=== PATIENT | female | born 1970 | race Caucasian/White ===

== ENCOUNTER 2017-06-09 09:43 | Inpatient (IN) | payer OTHER ==
[~2017-06-09] VITALS: Ht 165.1 cm; Wt 66.2 kg
[2017-06-09 14:23] VITALS: BP 107/71
[2017-06-09] MEDS ORDERED: Hydromorphone 0.5mg/0.5ml inj IVP PRN (14:45)
--- NOTE | 2017-06-09 15:05 | History & Physical ---
History and Physical History & Physicial job # [id number] Alexsander Dubon MD Jun 09, 2017 15:05
[2017-06-09] MEDS: HYDROmorphone 1mg/ml Carpuject IVP PRN ×2 (16:16→20:17)
[2017-06-09] MEDS: D5 1/2NS w/KCl 20mEq 1,000 ML IV SCH (17:13)
[2017-06-09] MEDS ORDERED: LORazepam Inj 2mg/ml 1ml IV ONE (18:45)
[2017-06-09 20:00] VITALS: BP 115/59
[2017-06-09] MEDS: Tamsulosin 0.4mg cap ORAL SCH (20:17)
--- NOTE | 2017-06-09 22:15 | Consultation ---
DATE OF CONSULTATION: 06/09/2017 CONSULTING PHYSICIAN: Jeet Chavez M.D. REFERRING PHYSICIAN: Alexsander Dubon M.D. REASON FOR CONSULTATION: For evaluation of renal colic. HISTORY OF PRESENT ILLNESS: This is a 46-year-old female. She was seen at a [place] [facility] for right flank pain. She was transferred to [place] for basically insurance reasons. She was noted to have renal colic, secondary to obstructive ureteral stone. Urology evaluation requested. PAST MEDICAL HISTORY: Chart was reviewed. She has a history of a fibromyalgia. MEDICATIONS: was reviewed. She is currently on Flomax, pain medication, and Zofran. ALLERGIES: Aspirin. PHYSICAL EXAMINATION: VITAL SIGNS: Stable. Temperature is 97.9. LABORATORY AND DIAGNOSTIC DATA: Laboratory studies from [place] showed creatinine of 0.79. UA showed 11 to 25 RBCs. Diagnostic imaging studies, She had a CT scan at [place], the report showed a 4 mm stone of the right proximal ureter with mild right hydronephrosis. IMPRESSION: 1. Renal colic, secondary to a 4 mm right ureteral calculus. 2. Hydronephrosis, secondary to above. 3. Hematuria, secondary to above. PLAN AND DISCUSSION: The patient will be admitted for pain control. I agree with Flomax as ordered. She will be given a trial of passage. Her urine will be strained and if she is not able to pass the urine, at some point she may need to have endoscopic extraction of the stone. Thank you, Dr. Dubon, for this consultation. Jeet Chavez M.D. DR: RASHI JOB#: [id number] CC:
[2017-06-10] VITALS: BP 117/60
--- NOTE | 2017-06-10 | History and Physical Report ---
DATE OF ADMISSION: 06/09/2017 CHIEF COMPLAINT: Right lower quadrant pain. HISTORY OF PRESENT ILLNESS: This is a 46-year-old very delightful female with past medical history significant for fibromyalgia, history of dyslipidemia, borderline, history of asthma as well as osteoarthritis of the spine with lower back pain who was presented to the hospital initially to [facility] complaining about the lower back pain as well as right flank pain. The patient stated that the pain became progressively worsening. The pain initially started about two nights ago, improved. She felt that it is probably her back pain and she fall asleep and then next day during the day, the pain become progressively worsening to the point that she was not able to rest and subsequently decided come to the hospital. Shortly after initial evaluation at the [facility], the patient was confirmed to have a kidney stone and subsequently, the patient was transferred to [facility] for further evaluation and possible urology consultation. CT KUB confirmed that the patient has a 4 millimeter right proximal ureteral obstructing calculus with mild right hydronephrosis. Normal appendix. This is a preliminary result. PAST MEDICAL HISTORY: As above, history of fibromyalgia, asthma, borderline diabetes, history of lower back pain with arthritis of the spine. PAST SURGICAL HISTORY: Significant for LEEP in 1999. MEDICATIONS: Medications at home is none. ALLERGIES: Aspirin. SOCIAL HISTORY: The patient denies any smoking, alcohol, or drugs. She is a former smoker, quit about two years ago. FAMILY HISTORY: Noncontributory except her kidney stone runs in the paternal side. Her father has a history of heart disease with PTCA with stent, congestive heart failure, brain aneurysm and diabetes. Mother had a history of left bundle-branch block. REVIEW OF SYSTEMS: Mostly as above. Denies any dysuria, frequency, hematuria, or hematochezia. Denies any hemoptysis or hematochezia. Denies any bright-red blood per rectum. Denies any loss of conscious. Complains of left flank pain. Nausea. No vomiting. Denies any double vision. PHYSICAL EXAMINATION: GENERAL: The patient awake, responsive, no acute distress. VITAL SIGNS: On admission, blood pressure 119/76, pulse of 92, respiration 18, and temperature 98.4 degrees. HEENT: Pupils are reactive to light. Extraocular movements are intact. NECK: Supple. No JVD. LUNGS: Good air entry. No wheezing or rales. HEART: S1 and S2. Regular rhythm. No murmur or gallops. ABDOMEN: Soft, nondistended, and tender on the right lower quadrant as well as right flank pain. No rebound tenderness. No fluid shift. EXTREMITIES: No cyanosis, clubbing, or edema. NEUROLOGIC: Cranial nerves II through XII grossly intact. Motor is 5/5 in all extremities. PSYCHIATRIC: Mood and affect is intact. LABORATORY AND DIAGNOSTIC DATA: On admission, WBC of 5.5, hemoglobin 14, hematocrit 41, platelet is 185,000. Sodium 140, potassium 3.5, chloride 106, bicarbonate 25, BUN 11, creatinine is 0.79. Urinalysis negative leukocyte and negative protein. The patient's CT KUB confirmed that a 4 millimeter right proxy small urethral obstruction calculus with mild right hydronephrosis. Normal appendix. ASSESSMENT: 1. Right flank pain, most likely secondary to renal calculi. 2. Fibromyalgia. 3. Asthma. PLAN: Admit the patient to Medical/Surgical. Start the patient on IV hydration. Place the patient on a regular diet. Discussed with Dr. Chavez from Urology. Start the patient on Flomax. DVT prophylaxis with low risk. Activity, as tolerated. Code Status, Full Code. Discussed with mother extensively at bedside. Alexsander Dubon M.D. DR: FRANCHESCA JOB#: [id number] CC:
[2017-06-10] MEDS: HYDROmorphone 1mg/ml Carpuject IVP PRN ×6 (01:12→21:33)
[2017-06-10 04:00] VITALS: BP 100/56
[2017-06-10] MEDS: D5 1/2NS w/KCl 20mEq 1,000 ML IV SCH ×4 (05:16→23:34)
[2017-06-10 08:50] VITALS: BP 104/61
[2017-06-10 09:23] LABS: BASOPHILS % (AUTO) 0.6 % (0.0-2.0); EOSINOPHILS % (AUTO) 1.2 % (0.0-3.0); HEMATOCRIT 35.1 % (37.0-47.0); HEMOGLOBIN 12.4 G/DL (12.0-16.0); LYMPHOCYTES % (AUTO) 23.7 % (20.0-45.0); MEAN CORPUSCULAR VOLUME 94 FL (80-99); MONOCYTES % (AUTO) 8.6 % (1.0-10.0); NEUTROPHILS % (AUTO) 65.9 % (45.0-75.0); PLATELET COUNT 126 K/UL (150-450); RED BLOOD COUNT 3.75 M/UL (4.20-5.40); RED CELL DISTRIBUTION WIDTH 10.7 % (11.6-14.8); WHITE BLOOD COUNT 6.5 K/UL (4.8-10.8)
[2017-06-10 09:41] LABS: INR 0.9 (0.9-1.1)
[2017-06-10 09:46] LABS: ALANINE AMINOTRANSFERASE 19 U/L (12-78); ALBUMIN 3.1 G/DL (3.4-5.0); ALBUMIN/GLOBULIN RATIO 1.1 (1.0-2.7); ALKALINE PHOSPHATASE 48 U/L (46-116); ANION GAP 4 mmol/L (5-15); ASPARTATE AMINO TRANSFERASE 14 U/L (15-37); BILIRUBIN,TOTAL 0.6 MG/DL (0.2-1.0); BLOOD UREA NITROGEN 7 mg/dL (7-18); CALCIUM 9.1 MG/DL (8.5-10.1); CARBON DIOXIDE 27 MMOL/L (21-32); CHLORIDE 107 MMOL/L (98-107); CREATININE 1.1 MG/DL (0.55-1.30); POTASSIUM 4.7 MMOL/L (3.5-5.1); SODIUM 138 MMOL/L (136-145)
--- NOTE | 2017-06-10 10:11 | Urology Progress Note ---
Assessment/Plan Assessment/Plan 1. Renal colic, secondary to a 4 mm right ureteral calculus. 2. Hydronephrosis, secondary to above. 3. Hematuria, secondary to above. d/w pt fully she wants to cont with trial of passage for now cont flomax and strain urine may need ureteroscopy if can't pass the stone d/w Dr. Dubon Subjective Allergies: Coded Allergies: ASPIRIN (Verified Allergy, Mild, 06/09/17) Subjective still with some flank pain Objective Last 24 Hour Vital Signs Date Time Temp Pulse Resp B/P (MAP) Pulse Ox O2 Delivery O2 Flow Rate FiO2 06/10/17 08:50 98.1 78 20 104/61 95 06/10/17 05:51 98.8 06/10/17 04:00 98.6 68 20 100/56 95 Room Air 06/10/17 00:00 98.2 70 19 117/60 97 Room Air 06/09/17 20:00 98.8 65 19 115/59 96 Room Air 06/09/17 14:23 97.9 60 20 107/71 98 Room Air Intake and Output 06/09/17 06/10/17 19:00 07:00 Intake Total 220 ml 1280 ml Balance 220 ml 1280 ml Intake Oral 120 ml 480 ml IV Total 100 ml 800 ml # Voids 3 Current Medications Medications (Trade) Dose Ordered Sig/Belen Route PRN Reason Start Time Stop Time Status Last Admin Dose Admin Acetaminophen (Tylenol) 650 mg Q6H PRN ORAL Mild Pain/Temp > 100.5 06/09/17 14:45 07/09/17 14:44 Dextrose/ Electrolytes 1,000 ml @ 100 mls/hr Q10H IV 06/09/17 17:00 07/09/17 16:59 06/10/17 05:16 Hydromorphone HCl (Dilaudid) 0.5 mg Q4H PRN IVP Mild Pain (Pain Scale 1-3) 06/09/17 14:45 06/16/17 14:44 Hydromorphone HCl (Dilaudid) 1 mg Q4H PRN IVP Severe Pain (Pain Scale 7-10) 06/09/17 14:45 06/16/17 14:44 06/10/17 09:23 Ondansetron HCl (Zofran) 4 mg Q4H PRN IVP Nausea & Vomiting 2/9/18 14:45 07/09/17 14:44 06/10/17 09:23 Tamsulosin HCl (Flomax) 0.4 mg BEDTIME ORAL 06/09/17 21:00 07/09/17 20:59 06/09/17 20:17 Laboratory Tests 06/10/17 06:55: White Blood Count 6.5, Red Blood Count 3.75L, Hemoglobin 12.4, Hematocrit 35.1L , Mean Corpuscular Volume 94, Mean Corpuscular Hemoglobin 33.1H, Mean Corpuscular Hemoglobin Concent 35.4, Red Cell Distribution Width 10.7L, Platelet Count 126L, Mean Platelet Volume 9.2, Neutrophils (%) (Auto) 65.9, Lymphocytes (%) (Auto) 23.7, Monocytes (%) (Auto) 8.6, Eosinophils (%) (Auto) 1.2, Basophils (%) (Auto) 0.6, Prothrombin Time 9.9, Prothromb Time International Ratio 0.9, Activated Partial Thromboplast Time 24, Sodium Level 138, Potassium Level 4.7, Chloride Level 107, Carbon Dioxide Level 27, Anion Gap 4L, Blood Urea Nitrogen 7, Creatinine 1.1, Estimat Glomerular Filtration Rate 53.5, Glucose Level 116H, Calcium Level 9.1, Phosphorus Level 3.0, Magnesium Level 2.0, Total Bilirubin 0.6, Aspartate Amino Transf (AST/SGOT) 14L , Alanine Aminotransferase (ALT/SGPT) 19, Alkaline Phosphatase 48, Total Protein 5.9L, Albumin 3.1L, Globulin 2.8, Albumin/Globulin Ratio 1.1 Height (Feet): 5 Height (Inches): 5.00 Weight (Pounds): 146 Objective no SHANIQUA MARTINEZ Jun 10, 2017 10:11
[2017-06-10 11:59] VITALS: BP 106/71
--- NOTE | 2017-06-10 12:40 | Consultation ---
History of Present Illness General Date patient seen: Jun 10, 2017 Chief Complaint: Back pain and shortness of breath Referring physician: Dr. Dubon Reason for Consultation: Shortness in breath history of asthma Present Illness HPI 46 yo female with pmhx asthma, fibromyalgia, dyslipidemia, osteoarthritis of the spine with lower back pain who was presented to the hospital initially to [facility] complaining about the lower back pain as well as right flank pain. I was asked to consult on this case because the patient was expressing worries about her asthma excacerbating by the excrutiating pain she was feeling from her back pain and the patient reported occasionally being short of breath when the pain was at its most intense degree. I have met with the patient, at this time she does not have any complaint of shortness of breath, however I feel she will benefit from low dose course of corticosteroids and bronchodilators on as needed basis aswell as breathing treatments in the hostpial and aswell pain management. Allergies: Coded Allergies: ASPIRIN (Verified Allergy, Mild, 06/09/17) Medication History Scheduled PRN Hydrocodone Bit/Acetaminophen 5-325* ([place] 5-325*), 1 TAB ORAL Q4H PRN for For Pain, (Reported) Patient History Healthcare decision maker N Resuscitation status Chemical (Meds Only) Advanced Directive on File Past Medical/Surgical History Past Medical/Surgical History: (1) Kidney stone (2) Low back pain (3) Fibromyalgia (4) Hypercholesterolemia (5) Asthma (6) Right flank pain (7) Ureteral calculus, right (8) Intractable abdominal pain Review of Systems Respiratory: Reports: cough, shortness of breath, wheezing Musculoskeletal: Reports: back pain, gout, joint pain, joint swelling, muscle pain, muscle stiffness Physical Exam General Appearance: moderate distress Lines, tubes and drains: peripheral HEENT: normocephalic, atraumatic, anicteric, PERRL Neck: non-tender, normal alignment, supple, normal inspection Respiratory/Chest: chest wall non-tender, lungs clear, normal breath sounds, no respiratory distress Breasts: no masses Cardiovascular/Chest: normal peripheral pulses, normal rate, regular rhythm, no JVD Abdomen: normal bowel sounds, non tender, soft, no organomegaly, no mass Genitourinary/Rectal: normal genital exam, normal rectal exam Extremities: normal range of motion, non-tender, normal inspection, no calf tenderness Skin Exam: normal pigmentation, warm/dry Neurologic: 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 II-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 grossly normal, no motor/sensory deficits Last 24 Hour Vital Signs Date Time Temp Pulse Resp B/P (MAP) Pulse Ox O2 Delivery O2 Flow Rate FiO2 06/10/17 11:59 97.9 71 20 106/71 95 06/10/17 08:50 98.1 78 20 104/61 95 06/10/17 05:51 98.8 06/10/17 04:00 98.6 68 20 100/56 95 Room Air 06/10/17 00:00 98.2 70 19 117/60 97 Room Air 06/09/17 20:00 98.8 65 19 115/59 96 Room Air 06/09/17 14:23 97.9 60 20 107/71 98 Room Air Intake and Output 06/09/17 06/10/17 19:00 07:00 Intake Total 220 ml 1280 ml Balance 220 ml 1280 ml Intake Oral 120 ml 480 ml IV Total 100 ml 800 ml # Voids 3 Laboratory Tests Test 06/10/17 06:55 White Blood Count 6.5 K/UL (4.8-10.8) Red Blood Count 3.75 M/UL (4.20-5.40) L Hemoglobin 12.4 G/DL (12.0-16.0) Hematocrit 35.1 % (37.0-47.0) L Mean Corpuscular Volume 94 FL (80-99) Mean Corpuscular Hemoglobin 33.1 PG (27.0-31.0) H Mean Corpuscular Hemoglobin Concent 35.4 G/DL (32.0-36.0) Red Cell Distribution Width 10.7 % (11.6-14.8) L Platelet Count 126 K/UL (150-450) L Mean Platelet Volume 9.2 FL (6.5-10.1) Neutrophils (%) (Auto) 65.9 % (45.0-75.0) Lymphocytes (%) (Auto) 23.7 % (20.0-45.0) Monocytes (%) (Auto) 8.6 % (1.0-10.0) Eosinophils (%) (Auto) 1.2 % (0.0-3.0) Basophils (%) (Auto) 0.6 % (0.0-2.0) Prothrombin Time 9.9 SEC (9.30-11.50) Prothromb Time International Ratio 0.9 (0.9-1.1) Activated Partial Thromboplast Time 24 SEC (23-33) Sodium Level 138 MMOL/L (136-145) Potassium Level 4.7 MMOL/L (3.5-5.1) Chloride Level 107 MMOL/L (98-107) Carbon Dioxide Level 27 MMOL/L (21-32) Anion Gap 4 mmol/L (5-15) L Blood Urea Nitrogen 7 mg/dL (7-18) Creatinine 1.1 MG/DL (0.55-1.30) Estimat Glomerular Filtration Rate 53.5 mL/min (>60) Glucose Level 116 MG/DL (74-106) H Calcium Level 9.1 MG/DL (8.5-10.1) Phosphorus Level 3.0 MG/DL (2.5-4.9) Magnesium Level 2.0 MG/DL (1.8-2.4) Total Bilirubin 0.6 MG/DL (0.2-1.0) Aspartate Amino Transf (AST/SGOT) 14 U/L (15-37) L Alanine Aminotransferase (ALT/SGPT) 19 U/L (12-78) Alkaline Phosphatase 48 U/L (46-116) Total Protein 5.9 G/DL (6.4-8.2) L Albumin 3.1 G/DL (3.4-5.0) L Globulin 2.8 g/dL Albumin/Globulin Ratio 1.1 (1.0-2.7) Height (Feet): 5 Height (Inches): 5.00 Weight (Pounds): 146 Medications Current Medications Medications (Trade) Dose Ordered Sig/Belen Route PRN Reason Start Time Stop Time Status Last Admin Dose Admin Acetaminophen (Tylenol) 650 mg Q6H PRN ORAL Mild Pain/Temp > 100.5 06/09/17 14:45 07/09/17 14:44 Dextrose/ Electrolytes 1,000 ml @ 100 mls/hr Q10H IV 06/09/17 17:00 07/09/17 16:59 06/10/17 05:16 Hydromorphone HCl (Dilaudid) 0.5 mg Q4H PRN IVP Mild Pain (Pain Scale 1-3) 06/09/17 14:45 2/16/18 14:44 Hydromorphone HCl (Dilaudid) 1 mg Q4H PRN IVP Severe Pain (Pain Scale 7-10) 06/09/17 14:45 06/16/17 14:44 06/10/17 09:23 Ondansetron HCl (Zofran) 4 mg Q4H PRN IVP Nausea & Vomiting 06/09/17 14:45 07/09/17 14:44 06/10/17 09:23 Tamsulosin HCl (Flomax) 0.4 mg BEDTIME ORAL 06/09/17 21:00 07/09/17 20:59 06/09/17 20:17 Assessment/Plan Status: stable, progressing Assessment/Plan Asthma attack Shortness of breath History of asthma Renal colic 2 to ureteral calculus R ureteral calculus Hydronephrosis Hematuria S/P cystoscopy PLAN IVF gentle hydration Breathing treatment albuterol and atrovent as needed for SOB Patient refuses chest radiograph Patient refuses to begin oral corticosteroids due to adverse effects Pain management Urology will follow case Empiric abx O2 HHN prn MARCEL PETERSON Jun 10, 2017 12:40
[2017-06-10 16:09] VITALS: BP 111/61
--- NOTE | 2017-06-10 16:36 | Internal Med Progress Note ---
Subjective Date of Service: Jun 10, 2017 Physician Name ClaraCalvin Attending Physician Alexsander Dubon MD Current Medications Medications (Trade) Dose Ordered Sig/Belen Route PRN Reason Start Time Stop Time Status Last Admin Dose Admin Acetaminophen (Tylenol) 650 mg Q6H PRN ORAL Mild Pain/Temp > 100.5 06/09/17 14:45 07/09/17 14:44 Dextrose/ Electrolytes 1,000 ml @ 100 mls/hr Q10H IV 06/09/17 17:00 07/09/17 16:59 06/10/17 13:26 Hydromorphone HCl (Dilaudid) 0.5 mg Q4H PRN IVP Mild Pain (Pain Scale 1-3) 06/09/17 14:45 06/16/17 14:44 Hydromorphone HCl (Dilaudid) 1 mg Q4H PRN IVP Severe Pain (Pain Scale 7-10) 06/09/17 14:45 06/16/17 14:44 06/10/17 13:25 Ondansetron HCl (Zofran) 4 mg Q4H PRN IVP Nausea & Vomiting 06/09/17 14:45 07/09/17 14:44 06/10/17 13:25 Tamsulosin HCl (Flomax) 0.4 mg BEDTIME ORAL 06/09/17 21:00 07/09/17 20:59 06/09/17 20:17 Allergies: Coded Allergies: ASPIRIN (Verified Allergy, Mild, 06/09/17) ROS Limited/Unobtainable: No Constitutional: Reports: no symptoms HEENT: Reports: no symptoms Cardiovascular: Reports: no symptoms Respiratory: Reports: no symptoms Gastrointestinal/Abdominal: Reports: abdominal pain Genitourinary: Reports: no symptoms Neurologic/Psychiatric: Reports: no symptoms Subjective 46 YO F admitted with right flank pain, now right ureteral calculi. Cover for Int Kirk-Dr Dubon Objective Last Vital Signs Date Time Temp Pulse Resp B/P (MAP) Pulse Ox O2 Delivery O2 Flow Rate FiO2 06/10/17 16:09 98.8 71 23 111/61 96 Room Air General Appearance: WD/WN, no apparent distress, alert EENT: PERRL/EOMI, normal ENT inspection Neck: non-tender, normal alignment, supple, normal inspection Cardiovascular: normal peripheral pulses, normal rate, regular rhythm, no gallop/murmur, no JVD Respiratory/Chest: chest wall non-tender, lungs clear, normal breath sounds, no respiratory distress, no accessory muscle use Abdomen: normal bowel sounds, soft, no organomegaly, no mass, guarding, tender Extremities: normal range of motion, non-tender Neurologic: 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 of 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 director II-XII grossly normal, no motor/sensory deficits Skin: normal pigmentation, warm/dry Laboratory Tests Test 06/10/17 06:55 White Blood Count 6.5 K/UL (4.8-10.8) Red Blood Count 3.75 M/UL (4.20-5.40) L Hemoglobin 12.4 G/DL (12.0-16.0) Hematocrit 35.1 % (37.0-47.0) L Mean Corpuscular Volume 94 FL (80-99) Mean Corpuscular Hemoglobin 33.1 PG (27.0-31.0) H Mean Corpuscular Hemoglobin Concent 35.4 G/DL (32.0-36.0) Red Cell Distribution Width 10.7 % (11.6-14.8) L Platelet Count 126 K/UL (150-450) L Mean Platelet Volume 9.2 FL (6.5-10.1) Neutrophils (%) (Auto) 65.9 % (45.0-75.0) Lymphocytes (%) (Auto) 23.7 % (20.0-45.0) Monocytes (%) (Auto) 8.6 % (1.0-10.0) Eosinophils (%) (Auto) 1.2 % (0.0-3.0) Basophils (%) (Auto) 0.6 % (0.0-2.0) Prothrombin Time 9.9 SEC (9.30-11.50) Prothromb Time International Ratio 0.9 (0.9-1.1) Activated Partial Thromboplast Time 24 SEC (23-33) Sodium Level 138 MMOL/L (136-145) Potassium Level 4.7 MMOL/L (3.5-5.1) Chloride Level 107 MMOL/L (98-107) Carbon Dioxide Level 27 MMOL/L (21-32) Anion Gap 4 mmol/L (5-15) L Blood Urea Nitrogen 7 mg/dL (7-18) Creatinine 1.1 MG/DL (0.55-1.30) Estimat Glomerular Filtration Rate 53.5 mL/min (>60) Glucose Level 116 MG/DL (74-106) H Calcium Level 9.1 MG/DL (8.5-10.1) Phosphorus Level 3.0 MG/DL (2.5-4.9) Magnesium Level 2.0 MG/DL (1.8-2.4) Total Bilirubin 0.6 MG/DL (0.2-1.0) Aspartate Amino Transf (AST/SGOT) 14 U/L (15-37) L Alanine Aminotransferase (ALT/SGPT) 19 U/L (12-78) Alkaline Phosphatase 48 U/L (46-116) Total Protein 5.9 G/DL (6.4-8.2) L Albumin 3.1 G/DL (3.4-5.0) L Globulin 2.8 g/dL Albumin/Globulin Ratio 1.1 (1.0-2.7) Intake and Output 06/09/17 06/10/17 19:00 07:00 Intake Total 220 ml 1280 ml Balance 220 ml 1280 ml Intake Oral 120 ml 480 ml IV Total 100 ml 800 ml # Voids 3 Assessment/Plan Problem List: (1) Right flank pain Assessment & Plan: Due to ureteral calculus. dilaudid prn (2) Ureteral calculus, right Assessment & Plan: Continue flomax and strain urine. May require ureteroscopy- see Urology note. (3) Low back pain (4) Asthma (5) Hypercholesterolemia (6) Fibromyalgia Status: not improved CALVIN WALLS Jun 10, 2017 16:35
[2017-06-10 20:00] VITALS: BP 113/57
[2017-06-10] MEDS: Tamsulosin 0.4mg cap ORAL SCH (20:15)
[2017-06-10 21:34] LABS: APPEARANCE,URINE CLEAR; BILIRUBIN, URINE NEGATIVE (NEGATIVE); COLOR,URINE PALE YELLOW; GLUCOSE, URINE (UA) NEGATIVE (NEGATIVE); KETONES,URINE NEGATIVE (NEGATIVE); LEUKOCYTE ESTERASE ,URINE NEGATIVE (NEGATIVE); NITRITE,URINE NEGATIVE (NEGATIVE); PH,URINE 5 (4.5-8.0); PROTEIN,URINE NEGATIVE (NEGATIVE); UROBILINOGEN,URINE NORMAL MG/DL (0.0-1.0)
[2017-06-11 04:19] VITALS: BP 105/59
[2017-06-11] MEDS: HYDROmorphone 1mg/ml Carpuject IVP PRN ×2 (07:48→13:45)
[2017-06-11 08:00] VITALS: BP 114/73
[2017-06-11 08:47] LABS: BASOPHILS % (AUTO) 0.5 % (0.0-2.0); EOSINOPHILS % (AUTO) 1.6 % (0.0-3.0); HEMATOCRIT 37.2 % (37.0-47.0); HEMOGLOBIN 13.4 G/DL (12.0-16.0); LYMPHOCYTES % (AUTO) 27.8 % (20.0-45.0); MEAN CORPUSCULAR VOLUME 92 FL (80-99); MONOCYTES % (AUTO) 7.6 % (1.0-10.0); NEUTROPHILS % (AUTO) 62.5 % (45.0-75.0); PLATELET COUNT 149 K/UL (150-450); RED BLOOD COUNT 4.03 M/UL (4.20-5.40); RED CELL DISTRIBUTION WIDTH 10.6 % (11.6-14.8); WHITE BLOOD COUNT 5.8 K/UL (4.8-10.8)
[2017-06-11 09:12] LABS: ALANINE AMINOTRANSFERASE 20 U/L (12-78); ALBUMIN 3.3 G/DL (3.4-5.0); ALBUMIN/GLOBULIN RATIO 1.1 (1.0-2.7); ALKALINE PHOSPHATASE 51 U/L (46-116); ANION GAP 7 mmol/L (5-15); ASPARTATE AMINO TRANSFERASE 16 U/L (15-37); BILIRUBIN,TOTAL 0.4 MG/DL (0.2-1.0); BLOOD UREA NITROGEN 5 mg/dL (7-18); CALCIUM 9.4 MG/DL (8.5-10.1); CARBON DIOXIDE 27 MMOL/L (21-32); CHLORIDE 106 MMOL/L (98-107); CREATININE 0.8 MG/DL (0.55-1.30); PHOSPHORUS 2.8 MG/DL (2.5-4.9); POTASSIUM 4.5 MMOL/L (3.5-5.1); SODIUM 140 MMOL/L (136-145)
--- NOTE | 2017-06-11 10:02 | Urology Progress Note ---
Assessment/Plan Assessment/Plan 1. Renal colic, secondary to a 4 mm right ureteral calculus. 2. Hydronephrosis, secondary to above. 3. Hematuria, secondary to above. d/w pt fully she wants to cont with trial of passage for now cont flomax and strain urine check KUB may need ureteroscopy if can't pass the stone d/w Dr. Dubon Subjective Allergies: Coded Allergies: ASPIRIN (Verified Allergy, Mild, 06/09/17) Subjective still with some flank pain Objective Last 24 Hour Vital Signs Date Time Temp Pulse Resp B/P (MAP) Pulse Ox O2 Delivery O2 Flow Rate FiO2 06/11/17 08:18 97.9 06/11/17 08:00 97.9 84 19 114/73 98 Room Air 06/11/17 04:19 98.8 75 23 105/59 96 Room Air 06/10/17 20:00 98.8 72 23 113/57 96 06/10/17 16:09 98.8 71 23 111/61 96 Room Air 06/10/17 11:59 97.9 71 20 106/71 95 Intake and Output 06/10/17 06/11/17 19:00 07:00 Intake Total 2060 ml 1580 ml Balance 2060 ml 1580 ml Intake Oral 960 ml 480 ml IV Total 1100 ml 1100 ml # Voids 2 Current Medications Medications (Trade) Dose Ordered Sig/Belen Route PRN Reason Start Time Stop Time Status Last Admin Dose Admin Acetaminophen (Tylenol) 650 mg Q6H PRN ORAL Mild Pain/Temp > 100.5 06/09/17 14:45 07/09/17 14:44 Dextrose/ Electrolytes 1,000 ml @ 100 mls/hr Q10H IV 06/09/17 17:00 07/09/17 16:59 06/10/17 23:34 Hydromorphone HCl (Dilaudid) 0.5 mg Q4H PRN IVP Mild Pain (Pain Scale 1-3) 06/09/17 14:45 06/16/17 14:44 Hydromorphone HCl (Dilaudid) 1 mg Q4H PRN IVP Severe Pain (Pain Scale 7-10) 06/09/17 14:45 06/16/17 14:44 06/11/17 07:48 Ondansetron HCl (Zofran) 4 mg Q4H PRN IVP Nausea & Vomiting 06/09/17 14:45 07/09/17 14:44 06/10/17 21:24 Tamsulosin HCl (Flomax) 0.4 mg BEDTIME ORAL 06/09/17 21:00 07/09/17 20:59 06/10/17 20:15 Laboratory Tests 06/10/17 21:00: Urine Color Pale yellow, Urine Appearance Clear, Urine pH 5, Urine Specific [place] 1.010, Urine Protein Negative, Urine Glucose (UA) Negative, Urine Ketones Negative, Urine Occult Blood 4+H, Urine Nitrite Negative, Urine Bilirubin Negative, Urine Urobilinogen Normal, Urine Leukocyte Esterase Negative , Urine RBC 2-4H, Urine WBC 0-2, Urine Squamous Epithelial Cells Few, Urine Bacteria Few 06/11/17 06:42: White Blood Count 5.8, Red Blood Count 4.03L, Hemoglobin 13.4, Hematocrit 37.2, Mean Corpuscular Volume 92, Mean Corpuscular Hemoglobin 33.2H, Mean Corpuscular Hemoglobin Concent 35.9, Red Cell Distribution Width 10.6L, Platelet Count 149L , Mean Platelet Volume 8.5, Neutrophils (%) (Auto) 62.5, Lymphocytes (%) (Auto) 27.8, Monocytes (%) (Auto) 7.6, Eosinophils (%) (Auto) 1.6, Basophils (%) (Auto ) 0.5, Sodium Level 140, Potassium Level 4.5, Chloride Level 106, Carbon Dioxide Level 27, Anion Gap 7, Blood Urea Nitrogen 5L, Creatinine 0.8, Estimat Glomerular Filtration Rate > 60, Glucose Level 108H, Calcium Level 9.4, Phosphorus Level 2.8, Magnesium Level 1.8, Total Bilirubin 0.4, Aspartate Amino Transf (AST/SGOT) 16, Alanine Aminotransferase (ALT/SGPT) 20, Alkaline Phosphatase 51, Total Protein 6.4, Albumin 3.3L, Globulin 3.1, Albumin/Globulin Ratio 1.1 Height (Feet): 5 Height (Inches): 5.00 Weight (Pounds): 146 Objective no SHANIQUA MARTINEZ Jun 11, 2017 10:02
--- NOTE | 2017-06-11 10:49 | Diagnostic Imaging Report ---
Indication: Pain Technique: XRAY Abdomen 1v Comparison: None Findings: Bowel gas pattern is nonspecific and not overtly obstructive. No evidence to suggest free intraperitoneal air however evaluation is limited on supine views. Copious stool noted in the right colon. No acute osseous abnormality seen. Impression: Nonobstructive bowel gas pattern. Copious stool in the right colon.
--- NOTE | 2017-06-11 11:15 | Pulmonology Progress Note ---
Assessment/Plan Problems: (1) Intractable abdominal pain (2) Ureteral calculus, right (3) Asthma Assessment/Plan iv hydration f/u by urology check electrolytes pain management Subjective ROS Limited/Unobtainable: No Constitutional: Reports: no symptoms HEENT: Repors: no symptoms Allergies: Coded Allergies: ASPIRIN (Verified Allergy, Mild, 06/09/17) Objective Last 24 Hour Vital Signs Date Time Temp Pulse Resp B/P (MAP) Pulse Ox O2 Delivery O2 Flow Rate FiO2 06/11/17 08:18 97.9 06/11/17 08:00 97.9 84 19 114/73 98 Room Air 06/11/17 04:19 98.8 75 23 105/59 96 Room Air 06/10/17 20:00 98.8 72 23 113/57 96 06/10/17 16:09 98.8 71 23 111/61 96 Room Air 06/10/17 11:59 97.9 71 20 106/71 95 Intake and Output 06/10/17 06/11/17 19:00 07:00 Intake Total 2060 ml 1680 ml Balance 2060 ml 1680 ml Intake Oral 960 ml 480 ml IV Total 1100 ml 1200 ml # Voids 2 General Appearance: no acute distress HEENT: atraumatic Respiratory/Chest: chest wall non-tender, normal breath sounds Breasts: no masses Cardiovascular: normal peripheral pulses Abdomen: normal bowel sounds, non distended Genitourinary: normal external genitalia Extremities: no clubbing Neurologic/Psychiatric: no motor/sensory deficits Microbiology Date/Time Source Procedure Growth Status 06/10/17 21:00 Urine,Clean Catch Urine Culture - Preliminary NO GROWTH Resulted Laboratory Tests 06/10/17 21:00: Urine Color Pale yellow, Urine Appearance Clear, Urine pH 5, Urine Specific [place] 1.010, Urine Protein Negative, Urine Glucose (UA) Negative, Urine Ketones Negative, Urine Occult Blood 4+H, Urine Nitrite Negative, Urine Bilirubin Negative, Urine Urobilinogen Normal, Urine Leukocyte Esterase Negative , Urine RBC 2-4H, Urine WBC 0-2, Urine Squamous Epithelial Cells Few, Urine Bacteria Few 06/11/17 06:42: White Blood Count 5.8, Red Blood Count 4.03L, Hemoglobin 13.4, Hematocrit 37.2, Mean Corpuscular Volume 92, Mean Corpuscular Hemoglobin 33.2H, Mean Corpuscular Hemoglobin Concent 35.9, Red Cell Distribution Width 10.6L, Platelet Count 149L , Mean Platelet Volume 8.5, Neutrophils (%) (Auto) 62.5, Lymphocytes (%) (Auto) 27.8, Monocytes (%) (Auto) 7.6, Eosinophils (%) (Auto) 1.6, Basophils (%) (Auto ) 0.5, Sodium Level 140, Potassium Level 4.5, Chloride Level 106, Carbon Dioxide Level 27, Anion Gap 7, Blood Urea Nitrogen 5L, Creatinine 0.8, Estimat Glomerular Filtration Rate > 60, Glucose Level 108H, Calcium Level 9.4, Phosphorus Level 2.8, Magnesium Level 1.8, Total Bilirubin 0.4, Aspartate Amino Transf (AST/SGOT) 16, Alanine Aminotransferase (ALT/SGPT) 20, Alkaline Phosphatase 51, Total Protein 6.4, Albumin 3.3L, Globulin 3.1, Albumin/Globulin Ratio 1.1 Current Medications Medications (Trade) Dose Ordered Sig/Belen Route PRN Reason Start Time Stop Time Status Last Admin Dose Admin Acetaminophen (Tylenol) 650 mg Q6H PRN ORAL Mild Pain/Temp > 100.5 06/09/17 14:45 07/09/17 14:44 Dextrose/ Electrolytes 1,000 ml @ 100 mls/hr Q10H IV 06/09/17 17:00 07/09/17 16:59 06/10/17 23:34 Hydromorphone HCl (Dilaudid) 0.5 mg Q4H PRN IVP Mild Pain (Pain Scale 1-3) 06/09/17 14:45 06/16/17 14:44 Hydromorphone HCl (Dilaudid) 1 mg Q4H PRN IVP Severe Pain (Pain Scale 7-10) 06/09/17 14:45 06/16/17 14:44 06/11/17 07:48 Ondansetron HCl (Zofran) 4 mg Q4H PRN IVP Nausea & Vomiting 06/09/17 14:45 07/09/17 14:44 06/10/17 21:24 Tamsulosin HCl (Flomax) 0.4 mg BEDTIME ORAL 06/09/17 21:00 07/09/17 20:59 06/10/17 20:15 MARCEL PETERSON Jun 11, 2017 11:15
[2017-06-11 11:52] VITALS: BP 112/65
[2017-06-11 16:00] VITALS: BP 103/65
--- NOTE | 2017-06-11 17:19 | Internal Med Progress Note ---
Subjective Date of Service: Jun 11, 2017 Physician Name ClaraCalvin Attending Physician Alexsander Dubon MD Current Medications Medications (Trade) Dose Ordered Sig/Belen Route PRN Reason Start Time Stop Time Status Last Admin Dose Admin Acetaminophen (Tylenol) 650 mg Q6H PRN ORAL Mild Pain/Temp > 100.5 06/09/17 14:45 07/09/17 14:44 Dextrose/ Electrolytes 1,000 ml @ 100 mls/hr Q10H IV 06/09/17 17:00 07/09/17 16:59 06/10/17 23:34 Hydromorphone HCl (Dilaudid) 0.5 mg Q4H PRN IVP Mild Pain (Pain Scale 1-3) 06/09/17 14:45 06/16/17 14:44 Hydromorphone HCl (Dilaudid) 1 mg Q4H PRN IVP Severe Pain (Pain Scale 7-10) 06/09/17 14:45 06/16/17 14:44 06/11/17 13:45 Ondansetron HCl (Zofran) 4 mg Q4H PRN IVP Nausea & Vomiting 06/09/17 14:45 07/09/17 14:44 06/10/17 21:24 Tamsulosin HCl (Flomax) 0.4 mg BEDTIME ORAL 06/09/17 21:00 07/09/17 20:59 06/10/17 20:15 Allergies: Coded Allergies: ASPIRIN (Verified Allergy, Mild, 06/09/17) ROS Limited/Unobtainable: No Constitutional: Reports: no symptoms HEENT: Reports: no symptoms Cardiovascular: Reports: no symptoms Respiratory: Reports: no symptoms Gastrointestinal/Abdominal: Reports: abdominal pain Genitourinary: Reports: no symptoms Subjective 46 YO F admitted with right flank pain, now right ureteral calculi. Cover for Int Kirk-Dr Dubon Objective Last Vital Signs Date Time Temp Pulse Resp B/P (MAP) Pulse Ox O2 Delivery O2 Flow Rate FiO2 06/11/17 16:00 98.2 18 103/65 97 Room Air 06/11/17 08:00 84 Laboratory Tests Test 06/10/17 21:00 06/11/17 06:42 Urine Color Pale yellow Urine Appearance Clear Urine pH 5 (4.5-8.0) Urine Specific [place] 1.010 (1.005-1.035) Urine Protein Negative (NEGATIVE) Urine Glucose (UA) Negative (NEGATIVE) Urine Ketones Negative (NEGATIVE) Urine Occult Blood 4+ (NEGATIVE) H Urine Nitrite Negative (NEGATIVE) Urine Bilirubin Negative (NEGATIVE) Urine Urobilinogen Normal MG/DL (0.0-1.0) Urine Leukocyte Esterase Negative (NEGATIVE) Urine RBC 2-4 /HPF (0 - 2) H Urine WBC 0-2 /HPF (0 - 2) Urine Squamous Epithelial Cells Few /LPF (NONE/OCC) Urine Bacteria Few /HPF (NONE) White Blood Count 5.8 K/UL (4.8-10.8) Red Blood Count 4.03 M/UL (4.20-5.40) L Hemoglobin 13.4 G/DL (12.0-16.0) Hematocrit 37.2 % (37.0-47.0) Mean Corpuscular Volume 92 FL (80-99) Mean Corpuscular Hemoglobin 33.2 PG (27.0-31.0) H Mean Corpuscular Hemoglobin Concent 35.9 G/DL (32.0-36.0) Red Cell Distribution Width 10.6 % (11.6-14.8) L Platelet Count 149 K/UL (150-450) L Mean Platelet Volume 8.5 FL (6.5-10.1) Neutrophils (%) (Auto) 62.5 % (45.0-75.0) Lymphocytes (%) (Auto) 27.8 % (20.0-45.0) Monocytes (%) (Auto) 7.6 % (1.0-10.0) Eosinophils (%) (Auto) 1.6 % (0.0-3.0) Basophils (%) (Auto) 0.5 % (0.0-2.0) Sodium Level 140 MMOL/L (136-145) Potassium Level 4.5 MMOL/L (3.5-5.1) Chloride Level 106 MMOL/L (98-107) Carbon Dioxide Level 27 MMOL/L (21-32) Anion Gap 7 mmol/L (5-15) Blood Urea Nitrogen 5 mg/dL (7-18) L Creatinine 0.8 MG/DL (0.55-1.30) Estimat Glomerular Filtration Rate > 60 mL/min (>60) Glucose Level 108 MG/DL (74-106) H Calcium Level 9.4 MG/DL (8.5-10.1) Phosphorus Level 2.8 MG/DL (2.5-4.9) Magnesium Level 1.8 MG/DL (1.8-2.4) Total Bilirubin 0.4 MG/DL (0.2-1.0) Aspartate Amino Transf (AST/SGOT) 16 U/L (15-37) Alanine Aminotransferase (ALT/SGPT) 20 U/L (12-78) Alkaline Phosphatase 51 U/L (46-116) Total Protein 6.4 G/DL (6.4-8.2) Albumin 3.3 G/DL (3.4-5.0) L Globulin 3.1 g/dL Albumin/Globulin Ratio 1.1 (1.0-2.7) Microbiology Date/Time Source Procedure Growth Status 06/10/17 21:00 Urine,Clean Catch Urine Culture - Preliminary NO GROWTH Resulted Intake and Output 06/10/17 06/11/17 19:00 07:00 Intake Total 2060 ml 1680 ml Balance 2060 ml 1680 ml Intake Oral 960 ml 480 ml IV Total 1100 ml 1200 ml # Voids 2 Objective General Appearance: WD/WN, no apparent distress, alert EENT: PERRL/EOMI, normal ENT inspection Neck: non-tender, normal alignment, supple, normal inspection Cardiovascular: normal peripheral pulses, normal rate, regular rhythm, no gallop/murmur, no JVD Respiratory/Chest: chest wall non-tender, lungs clear, normal breath sounds, no respiratory distress, no accessory muscle use Abdomen: normal bowel sounds, soft, no organomegaly, no mass, guarding, tender Extremities: normal range of motion, non-tender 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 dilaudid prn (2) Ureteral calculus, right Assessment & Plan: Continue flomax and strain urine. May require ureteroscopy- see Urology note. (3) Low back pain (4) Asthma (5) Hypercholesterolemia (6) Fibromyalgia Status: not improved CALVIN WALLS Jun 11, 2017 17:19
[2017-06-11] MEDS: D5 1/2NS w/KCl 20mEq 1,000 ML IV SCH (17:20)
[2017-06-11 20:00] VITALS: BP 105/59
[2017-06-11] MEDS: Tamsulosin 0.4mg cap ORAL SCH (21:32)
[2017-06-12] VITALS (7 sets, daily range): BP systolic 86–112; BP diastolic 46–72
[2017-06-12] MEDS: D5 1/2NS w/KCl 20mEq 1,000 ML IV SCH ×2 (04:31→15:00)
[2017-06-12] MEDS: HYDROmorphone 1mg/ml Carpuject IVP PRN (07:57)
[2017-06-12 08:28] LABS: BASOPHILS % (AUTO) 1.1 % (0.0-2.0); EOSINOPHILS % (AUTO) 3.7 % (0.0-3.0); HEMATOCRIT 39.1 % (37.0-47.0); HEMOGLOBIN 13.6 G/DL (12.0-16.0); LYMPHOCYTES % (AUTO) 32.2 % (20.0-45.0); MEAN CORPUSCULAR VOLUME 93 FL (80-99); MONOCYTES % (AUTO) 8.1 % (1.0-10.0); PLATELET COUNT 159 K/UL (150-450); RED BLOOD COUNT 4.23 M/UL (4.20-5.40); RED CELL DISTRIBUTION WIDTH 10.5 % (11.6-14.8); WHITE BLOOD COUNT 5.1 K/UL (4.8-10.8)
--- NOTE | 2017-06-12 08:59 | Urology Progress Note ---
Assessment/Plan Assessment/Plan 1. Renal colic, secondary to a 4 mm right ureteral calculus. 2. Hydronephrosis, secondary to above. 3. Hematuria, secondary to above. d/w pt fully trial of passage pt wants definitive tx cont flomax and strain urine plan ureteroscopy if can't pass the stone check urine test d/w Dr. Dubon Subjective Allergies: Coded Allergies: ASPIRIN (Verified Allergy, Mild, 06/09/17) Subjective still with some flank pain, no stone in strainer Objective Last 24 Hour Vital Signs Date Time Temp Pulse Resp B/P (MAP) Pulse Ox O2 Delivery O2 Flow Rate FiO2 06/12/17 08:00 97.9 56 18 100/60 96 06/12/17 03:54 Room Air 06/12/17 03:46 98.2 67 18 103/61 99 Room Air 06/12/17 00:28 98.2 64 18 103/62 96 06/11/17 20:00 Room Air 06/11/17 20:00 98.1 73 18 105/59 96 06/11/17 16:00 98.2 18 103/65 97 Room Air 06/11/17 14:15 97.3 06/11/17 11:52 97.3 18 112/65 100 Room Air Intake and Output 06/11/17 06/12/17 19:00 07:00 Intake Total 640 ml 200 ml Balance 640 ml 200 ml Intake Oral 240 ml IV Total 400 ml 200 ml # Voids 5 2 Microbiology Date/Time Source Procedure Growth Status 06/10/17 21:00 Urine,Clean Catch Urine Culture - Preliminary Mixed Gram Positive Organism Resulted Current Medications Medications (Trade) Dose Ordered Sig/Belen Route PRN Reason Start Time Stop Time Status Last Admin Dose Admin Acetaminophen (Tylenol) 650 mg Q6H PRN ORAL Mild Pain/Temp > 100.5 06/09/17 14:45 07/09/17 14:44 Dextrose/ Electrolytes 1,000 ml @ 100 mls/hr Q10H IV 06/09/17 17:00 07/09/17 16:59 06/11/17 17:20 Hydromorphone HCl (Dilaudid) 0.5 mg Q4H PRN IVP Mild Pain (Pain Scale 1-3) 06/09/17 14:45 06/16/17 14:44 Hydromorphone HCl (Dilaudid) 1 mg Q4H PRN IVP Severe Pain (Pain Scale 7-10) 06/09/17 14:45 06/16/17 14:44 06/12/17 07:57 Ondansetron HCl (Zofran) 4 mg Q4H PRN IVP Nausea & Vomiting 06/09/17 14:45 07/09/17 14:44 06/10/17 21:24 Tamsulosin HCl (Flomax) 0.4 mg BEDTIME ORAL 06/09/17 21:00 07/09/17 20:59 06/11/17 21:32 Laboratory Tests 06/12/17 06:48: White Blood Count 5.1, Red Blood Count 4.23, Hemoglobin 13.6, Hematocrit 39.1, Mean Corpuscular Volume 93, Mean Corpuscular Hemoglobin 32.2H, Mean Corpuscular Hemoglobin Concent 34.7, Red Cell Distribution Width 10.5L, Platelet Count 159, Mean Platelet Volume 8.6, Neutrophils (%) (Auto) 55.0, Lymphocytes (%) (Auto) 32.2, Monocytes (%) (Auto) 8.1, Eosinophils (%) (Auto) 3.7H, Basophils (%) (Auto ) 1.1, Erythrocyte Sedimentation Rate [Pending], Sodium Level [Pending], Potassium Level [Pending], Chloride Level [Pending], Carbon Dioxide Level [ Pending], Blood Urea Nitrogen [Pending], Creatinine [Pending], Estimat Glomerular Filtration Rate [Pending], Glucose Level [Pending], Calcium Level [ Pending], Phosphorus Level [Pending], Magnesium Level [Pending], Total Bilirubin [Pending], Aspartate Amino Transf (AST/SGOT) [Pending], Alanine Aminotransferase (ALT/SGPT) [Pending], Alkaline Phosphatase [Pending], Total Protein [Pending], Albumin [Pending], Globulin [Pending] Height (Feet): 5 Height (Inches): 5.00 Weight (Pounds): 146 Objective no CVAT KUB noted SHANIQUA LIM Jun 12, 2017 08:59
[2017-06-12 09:00] LABS: ALANINE AMINOTRANSFERASE 20 U/L (12-78); ALBUMIN 3.6 G/DL (3.4-5.0); ALBUMIN/GLOBULIN RATIO 1.2 (1.0-2.7); ALKALINE PHOSPHATASE 55 U/L (46-116); ANION GAP 8 mmol/L (5-15); ASPARTATE AMINO TRANSFERASE 17 U/L (15-37); BILIRUBIN,TOTAL 0.5 MG/DL (0.2-1.0); BLOOD UREA NITROGEN 5 mg/dL (7-18); CARBON DIOXIDE 28 MMOL/L (21-32); CHLORIDE 106 MMOL/L (98-107); CREATININE 0.8 MG/DL (0.55-1.30); PHOSPHORUS 3.3 MG/DL (2.5-4.9); POTASSIUM 4.9 MMOL/L (3.5-5.1); SODIUM 142 MMOL/L (136-145)
--- NOTE | 2017-06-12 13:43 | Internal Med Progress Note ---
Subjective Date of Service: Jun 12, 2017 Physician Name Walls,Calvin Attending Physician Alexsander Dubon MD Current Medications Medications (Trade) Dose Ordered Sig/Belen Route PRN Reason Start Time Stop Time Status Last Admin Dose Admin Acetaminophen (Tylenol) 650 mg Q6H PRN ORAL Mild Pain/Temp > 100.5 06/09/17 14:45 07/09/17 14:44 Dextrose/ Electrolytes 1,000 ml @ 100 mls/hr Q10H IV 06/09/17 17:00 07/09/17 16:59 06/11/17 17:20 Hydromorphone HCl (Dilaudid) 0.5 mg Q4H PRN IVP Mild Pain (Pain Scale 1-3) 06/09/17 14:45 06/16/17 14:44 Hydromorphone HCl (Dilaudid) 1 mg Q4H PRN IVP Severe Pain (Pain Scale 7-10) 06/09/17 14:45 06/16/17 14:44 06/12/17 07:57 Ondansetron HCl (Zofran) 4 mg Q4H PRN IVP Nausea & Vomiting 06/09/17 14:45 07/09/17 14:44 06/10/17 21:24 Tamsulosin HCl (Flomax) 0.4 mg BEDTIME ORAL 06/09/17 21:00 07/09/17 20:59 06/11/17 21:32 Allergies: Coded Allergies: ASPIRIN (Verified Allergy, Mild, 06/09/17) ROS Limited/Unobtainable: No Constitutional: Reports: no symptoms HEENT: Reports: no symptoms Cardiovascular: Reports: no symptoms Respiratory: Reports: no symptoms Gastrointestinal/Abdominal: Reports: abdominal pain Genitourinary: Reports: no symptoms Neurologic/Psychiatric: Reports: no symptoms Subjective 46 YO F admitted with right flank pain, now right ureteral calculi. Cover for Int Kirk-Dr Dubon Objective Last Vital Signs Date Time Temp Pulse Resp B/P (MAP) Pulse Ox O2 Delivery O2 Flow Rate FiO2 06/12/17 12:00 98.1 69 18 107/63 97 06/12/17 03:54 Room Air Laboratory Tests Test 06/12/17 06:48 White Blood Count 5.1 K/UL (4.8-10.8) Red Blood Count 4.23 M/UL (4.20-5.40) Hemoglobin 13.6 G/DL (12.0-16.0) Hematocrit 39.1 % (37.0-47.0) Mean Corpuscular Volume 93 FL (80-99) Mean Corpuscular Hemoglobin 32.2 PG (27.0-31.0) H Mean Corpuscular Hemoglobin Concent 34.7 G/DL (32.0-36.0) Red Cell Distribution Width 10.5 % (11.6-14.8) L Platelet Count 159 K/UL (150-450) Mean Platelet Volume 8.6 FL (6.5-10.1) Neutrophils (%) (Auto) 55.0 % (45.0-75.0) Lymphocytes (%) (Auto) 32.2 % (20.0-45.0) Monocytes (%) (Auto) 8.1 % (1.0-10.0) Eosinophils (%) (Auto) 3.7 % (0.0-3.0) H Basophils (%) (Auto) 1.1 % (0.0-2.0) Erythrocyte Sedimentation Rate 19 MM/HR (0-20) Sodium Level 142 MMOL/L (136-145) Potassium Level 4.9 MMOL/L (3.5-5.1) Chloride Level 106 MMOL/L (98-107) Carbon Dioxide Level 28 MMOL/L (21-32) Anion Gap 8 mmol/L (5-15) Blood Urea Nitrogen 5 mg/dL (7-18) L Creatinine 0.8 MG/DL (0.55-1.30) Estimat Glomerular Filtration Rate > 60 mL/min (>60) Glucose Level 104 MG/DL (74-106) Calcium Level 10.0 MG/DL (8.5-10.1) Phosphorus Level 3.3 MG/DL (2.5-4.9) Magnesium Level 2.0 MG/DL (1.8-2.4) Total Bilirubin 0.5 MG/DL (0.2-1.0) Aspartate Amino Transf (AST/SGOT) 17 U/L (15-37) Alanine Aminotransferase (ALT/SGPT) 20 U/L (12-78) Alkaline Phosphatase 55 U/L (46-116) Total Protein 6.5 G/DL (6.4-8.2) Albumin 3.6 G/DL (3.4-5.0) Globulin 2.9 g/dL Albumin/Globulin Ratio 1.2 (1.0-2.7) Microbiology Date/Time Source Procedure Growth Status 06/10/17 21:00 Urine,Clean Catch Urine Culture - Preliminary Mixed Gram Positive Organism Resulted Intake and Output 06/11/17 06/12/17 19:00 07:00 Intake Total 640 ml 200 ml Balance 640 ml 200 ml Intake Oral 240 ml IV Total 400 ml 200 ml # Voids 5 2 Objective General Appearance: WD/WN, no apparent distress, alert EENT: PERRL/EOMI, normal ENT inspection Neck: non-tender, normal alignment, supple, normal inspection Cardiovascular: normal peripheral pulses, normal rate, regular rhythm, no gallop/murmur, no JVD Respiratory/Chest: chest wall non-tender, lungs clear, normal breath sounds, no respiratory distress, no accessory muscle use Abdomen: normal bowel sounds, soft, no organomegaly, no mass, guarding, tender Extremities: normal range of motion, non-tender 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 dilaudid prn (2) Ureteral calculus, right Assessment & Plan: Continue flomax and strain urine. May require ureteroscopy- see Urology note. (3) Low back pain (4) Asthma (5) Hypercholesterolemia (6) Fibromyalgia Status: not improved CALVIN WALLS Jun 12, 2017 13:43
--- NOTE | 2017-06-12 18:03 | Pulmonology Progress Note ---
Assessment/Plan Problems: (1) Intractable abdominal pain (2) Right flank pain (3) Ureteral calculus, right Assessment/Plan IV fluids analgesics f/u urology recommendations. Subjective ROS Limited/Unobtainable: No Interval Events: pain is controlled Allergies: Coded Allergies: ASPIRIN (Verified Allergy, Mild, 06/09/17) Objective Last 24 Hour Vital Signs Date Time Temp Pulse Resp B/P (MAP) Pulse Ox O2 Delivery O2 Flow Rate FiO2 06/12/17 16:24 98.2 06/12/17 15:56 98.2 70 20 112/68 97 06/12/17 12:00 98.1 69 18 107/63 97 06/12/17 08:27 97.9 06/12/17 08:00 97.9 56 18 100/60 96 06/12/17 03:54 Room Air 06/12/17 03:46 98.2 67 18 103/61 99 Room Air 06/12/17 00:28 98.2 64 18 103/62 96 06/11/17 20:00 Room Air 06/11/17 20:00 98.1 73 18 105/59 96 Intake and Output 06/11/17 06/12/17 19:00 07:00 Intake Total 640 ml 200 ml Balance 640 ml 200 ml Intake Oral 240 ml IV Total 400 ml 200 ml # Voids 5 2 Objective General Appearance: no apparent distress Head: normocephalic, atraumatic Eyes: bilateral eye PERRL, bilateral eye EOMI ENT: normal pharynx, no angioedema Neck: supple, thyroid normal Respiratory: lungs clear, normal breath sounds Cardiovascular #1: regular rate, rhythm Gastrointestinal: non tender, soft Microbiology Date/Time Source Procedure Growth Status 06/10/17 21:00 Urine,Clean Catch Urine Culture - Preliminary Mixed Gram Positive Organism Resulted Laboratory Tests 06/12/17 06:48: White Blood Count 5.1, Red Blood Count 4.23, Hemoglobin 13.6, Hematocrit 39.1, Mean Corpuscular Volume 93, Mean Corpuscular Hemoglobin 32.2H, Mean Corpuscular Hemoglobin Concent 34.7, Red Cell Distribution Width 10.5L, Platelet Count 159, Mean Platelet Volume 8.6, Neutrophils (%) (Auto) 55.0, Lymphocytes (%) (Auto) 32.2, Monocytes (%) (Auto) 8.1, Eosinophils (%) (Auto) 3.7H, Basophils (%) (Auto ) 1.1, Erythrocyte Sedimentation Rate 19, Sodium Level 142, Potassium Level 4.9 , Chloride Level 106, Carbon Dioxide Level 28, Anion Gap 8, Blood Urea Nitrogen 5L, Creatinine 0.8, Estimat Glomerular Filtration Rate > 60, Glucose Level 104, Calcium Level 10.0, Phosphorus Level 3.3, Magnesium Level 2.0, Total Bilirubin 0.5, Aspartate Amino Transf (AST/SGOT) 17, Alanine Aminotransferase (ALT/SGPT) 20, Alkaline Phosphatase 55, Total Protein 6.5, Albumin 3.6, Globulin 2.9, Albumin/Globulin Ratio 1.2 Current Medications Medications (Trade) Dose Ordered Sig/Belen Route PRN Reason Start Time Stop Time Status Last Admin Dose Admin Acetaminophen (Tylenol) 650 mg Q6H PRN ORAL Mild Pain/Temp > 100.5 06/09/17 14:45 07/09/17 14:44 06/12/17 15:25 Dextrose/ Electrolytes 1,000 ml @ 100 mls/hr Q10H IV 06/09/17 17:00 07/09/17 16:59 06/11/17 17:20 Hydromorphone HCl (Dilaudid) 0.5 mg Q4H PRN IVP Mild Pain (Pain Scale 1-3) 06/09/17 14:45 06/16/17 14:44 Hydromorphone HCl (Dilaudid) 1 mg Q4H PRN IVP Severe Pain (Pain Scale 7-10) 06/09/17 14:45 06/16/17 14:44 06/12/17 07:57 Ondansetron HCl (Zofran) 4 mg Q4H PRN IVP Nausea & Vomiting 06/09/17 14:45 07/09/17 14:44 06/10/17 21:24 Tamsulosin HCl (Flomax) 0.4 mg BEDTIME ORAL 06/09/17 21:00 07/09/17 20:59 06/11/17 21:32 MARCEL PETERSON Jun 12, 2017 18:03
[2017-06-12] MEDS: Tamsulosin 0.4mg cap ORAL SCH (20:45)
[2017-06-13] VITALS (15 sets, daily range): BP systolic 105–129; BP diastolic 59–78
[2017-06-13] MEDS: D5 1/2NS w/KCl 20mEq 1,000 ML IV SCH ×3 (00:19→20:50)
[2017-06-13 07:33] LABS: BASOPHILS % (AUTO) 0.6 % (0.0-2.0); EOSINOPHILS % (AUTO) 4.3 % (0.0-3.0); HEMATOCRIT 37.2 % (37.0-47.0); HEMOGLOBIN 13.3 G/DL (12.0-16.0); LYMPHOCYTES % (AUTO) 27.1 % (20.0-45.0); MEAN CORPUSCULAR VOLUME 92 FL (80-99); NEUTROPHILS % (AUTO) 59.9 % (45.0-75.0); PLATELET COUNT 165 K/UL (150-450); RED BLOOD COUNT 4.04 M/UL (4.20-5.40); RED CELL DISTRIBUTION WIDTH 10.7 % (11.6-14.8); WHITE BLOOD COUNT 4.4 K/UL (4.8-10.8)
[2017-06-13 07:36] LABS: ANION GAP 8 mmol/L (5-15); BLOOD UREA NITROGEN 9 mg/dL (7-18); CALCIUM 9.6 MG/DL (8.5-10.1); CARBON DIOXIDE 27 MMOL/L (21-32); CHLORIDE 105 MMOL/L (98-107); CREATININE 0.8 MG/DL (0.55-1.30); POTASSIUM 4.1 MMOL/L (3.5-5.1); SODIUM 140 MMOL/L (136-145)
--- NOTE | 2017-06-13 09:36 | Urology Progress Note ---
Assessment/Plan Assessment/Plan 1. Renal colic, secondary to a 4 mm right ureteral calculus. 2. Hydronephrosis, secondary to above. 3. Hematuria, secondary to above. d/w pt fully pt wants definitive tx cont flomax and strain urine plan ureteroscopy later today NPO d/w Dr. Dubon Subjective Allergies: Coded Allergies: ASPIRIN (Verified Allergy, Mild, 06/09/17) Subjective still with some flank pain, no stone in strainer Objective Last 24 Hour Vital Signs Date Time Temp Pulse Resp B/P (MAP) Pulse Ox O2 Delivery O2 Flow Rate FiO2 06/13/17 08:04 96.6 76 18 106/59 94 Room Air 06/13/17 04:48 Room Air 06/13/17 04:00 98.2 60 18 110/67 97 Room Air 06/13/17 00:18 81 20 110/70 Room Air 06/12/17 23:57 97.7 64 20 86/46 97 Room Air 06/12/17 20:30 96 Room Air 06/12/17 20:11 97.0 64 20 111/72 68 Room Air 06/12/17 16:24 98.2 06/12/17 15:56 98.2 70 20 112/68 97 06/12/17 12:00 98.1 69 18 107/63 97 Intake and Output 06/12/17 06/13/17 19:00 07:00 Intake Total 240 ml Balance 240 ml Intake Oral 240 ml # Voids 4 4 Microbiology Date/Time Source Procedure Growth Status 06/10/17 21:00 Urine,Clean Catch Urine Culture - Final Mixed Gram Positive Organism Complete Current Medications Medications (Trade) Dose Ordered Sig/Belen Route PRN Reason Start Time Stop Time Status Last Admin Dose Admin Acetaminophen (Tylenol) 650 mg Q6H PRN ORAL Mild Pain/Temp > 100.5 06/09/17 14:45 07/09/17 14:44 06/12/17 15:25 Dextrose/ Electrolytes 1,000 ml @ 100 mls/hr Q10H IV 06/09/17 17:00 07/09/17 16:59 06/13/17 08:20 Hydromorphone HCl (Dilaudid) 0.5 mg Q4H PRN IVP Mild Pain (Pain Scale 1-3) 06/09/17 14:45 06/16/17 14:44 Hydromorphone HCl (Dilaudid) 1 mg Q4H PRN IVP Severe Pain (Pain Scale 7-10) 06/09/17 14:45 06/16/17 14:44 06/12/17 07:57 Ondansetron HCl (Zofran) 4 mg Q4H PRN IVP Nausea & Vomiting 06/09/17 14:45 07/09/17 14:44 06/13/17 08:20 Tamsulosin HCl (Flomax) 0.4 mg BEDTIME ORAL 06/09/17 21:00 07/09/17 20:59 06/12/17 20:45 Laboratory Tests 06/12/17 19:55: Urine HCG, Qualitative Negative 06/13/17 05:35: White Blood Count 4.4L, Red Blood Count 4.04L, Hemoglobin 13.3, Hematocrit 37.2 , Mean Corpuscular Volume 92, Mean Corpuscular Hemoglobin 33.0H, Mean Corpuscular Hemoglobin Concent 35.8, Red Cell Distribution Width 10.7L, Platelet Count 165, Mean Platelet Volume 8.5, Neutrophils (%) (Auto) 59.9, Lymphocytes (%) (Auto) 27.1, Monocytes (%) (Auto) 8.0, Eosinophils (%) (Auto) 4.3H, Basophils (%) (Auto) 0.6, Sodium Level 140, Potassium Level 4.1, Chloride Level 105, Carbon Dioxide Level 27, Anion Gap 8, Blood Urea Nitrogen 9, Creatinine 0.8, Estimat Glomerular Filtration Rate > 60, Glucose Level 96, Calcium Level 9.6 Height (Feet): 5 Height (Inches): 5.00 Weight (Pounds): 146 Objective no CVAT KUB noted SHANIQUA LIM Jun 13, 2017 09:36
--- NOTE | 2017-06-13 09:47 | Pre-Procedure Note/Attestation ---
Pre-Procedure Note/Attestation Complete Prior to Procedure Planned Procedure: right Procedure Narrative: cysto, right ureteroscopy, laser and shockwave lithotripsy, ureteral stent Attestation I attest that I discussed the nature of the procedure; its benefits; risks and complications; and alternatives (and the risks and benefits of such alternatives ), prior to the procedure, with the patient (or the patient's legal community service representative). I attest that, if there was a reasonable possibility of needing a blood transfusion, the patient (or the patient's legal community service representative) was given the [facility] standardized written summary, pursuant to the Mayank Lenora Blood Safety Act ([place] Health and Safety Code # 1645, as amended). I attest that I re-evaluated the patient just prior to the surgery and that there has been no change in the patient's H&P, except as documented below: n/a SHANIQUA LIM Jun 13, 2017 09:47
--- NOTE | 2017-06-13 16:24 | Pulmonology Progress Note ---
Assessment/Plan Problems: (1) Intractable abdominal pain (2) Right flank pain (3) Ureteral calculus, right Assessment/Plan IV fluids analgesics f/u urology recommendations. cystoscopy Subjective ROS Limited/Unobtainable: No Constitutional: Reports: no symptoms HEENT: Repors: no symptoms Respiratory: Reports: no symptoms Allergies: Coded Allergies: ASPIRIN (Verified Allergy, Mild, 06/09/17) Objective Last 24 Hour Vital Signs Date Time Temp Pulse Resp B/P (MAP) Pulse Ox O2 Delivery O2 Flow Rate FiO2 06/13/17 15:40 98.1 72 18 129/69 94 Room Air 06/13/17 11:58 97.9 73 18 105/68 Room Air 06/13/17 08:04 96.6 76 18 106/59 94 Room Air 06/13/17 04:48 Room Air 06/13/17 04:00 98.2 60 18 110/67 97 Room Air 06/13/17 00:18 81 20 110/70 Room Air 06/12/17 23:57 97.7 64 20 86/46 97 Room Air 06/12/17 20:30 96 Room Air 06/12/17 20:11 97.0 64 20 111/72 68 Room Air Intake and Output 06/12/17 06/13/17 19:00 07:00 Intake Total 240 ml Balance 240 ml Intake Oral 240 ml # Voids 4 4 Objective General Appearance: no apparent distress Head: normocephalic, atraumatic Eyes: bilateral eye PERRL, bilateral eye EOMI ENT: normal pharynx, no angioedema Neck: supple, thyroid normal Respiratory: lungs clear, normal breath sounds Cardiovascular #1: regular rate, rhythm Gastrointestinal: non tender, soft Microbiology Date/Time Source Procedure Growth Status 06/10/17 21:00 Urine,Clean Catch Urine Culture - Final Mixed Gram Positive Organism Complete Laboratory Tests 06/12/17 19:55: Urine HCG, Qualitative Negative 06/13/17 05:35: White Blood Count 4.4L, Red Blood Count 4.04L, Hemoglobin 13.3, Hematocrit 37.2 , Mean Corpuscular Volume 92, Mean Corpuscular Hemoglobin 33.0H, Mean Corpuscular Hemoglobin Concent 35.8, Red Cell Distribution Width 10.7L, Platelet Count 165, Mean Platelet Volume 8.5, Neutrophils (%) (Auto) 59.9, Lymphocytes (%) (Auto) 27.1, Monocytes (%) (Auto) 8.0, Eosinophils (%) (Auto) 4.3H, Basophils (%) (Auto) 0.6, Sodium Level 140, Potassium Level 4.1, Chloride Level 105, Carbon Dioxide Level 27, Anion Gap 8, Blood Urea Nitrogen 9, Creatinine 0.8, Estimat Glomerular Filtration Rate > 60, Glucose Level 96, Calcium Level 9.6 Current Medications Medications (Trade) Dose Ordered Sig/Belen Route PRN Reason Start Time Stop Time Status Last Admin Dose Admin Acetaminophen (Tylenol) 650 mg Q6H PRN ORAL Mild Pain/Temp > 100.5 06/09/17 14:45 07/09/17 14:44 06/12/17 15:25 Dextrose/ Electrolytes 1,000 ml @ 100 mls/hr Q10H IV 06/09/17 17:00 07/09/17 16:59 06/13/17 08:20 Hydromorphone HCl (Dilaudid) 0.5 mg Q4H PRN IVP Mild Pain (Pain Scale 1-3) 06/09/17 14:45 06/16/17 14:44 Hydromorphone HCl (Dilaudid) 1 mg Q4H PRN IVP Severe Pain (Pain Scale 7-10) 06/09/17 14:45 06/16/17 14:44 06/12/17 07:57 Ondansetron HCl (Zofran) 4 mg Q4H PRN IVP Nausea & Vomiting 06/09/17 14:45 07/09/17 14:44 06/13/17 08:20 Tamsulosin HCl (Flomax) 0.4 mg BEDTIME ORAL 06/09/17 21:00 07/09/17 20:59 06/12/17 20:45 MARCEL PETERSON Jun 13, 2017 16:24
--- NOTE | 2017-06-13 16:56 | Internal Med Progress Note ---
Subjective Date of Service: Jun 13, 2017 Physician Name ClaraCalvin Attending Physician Alexsander Dubon MD Current Medications Medications (Trade) Dose Ordered Sig/Belen Route PRN Reason Start Time Stop Time Status Last Admin Dose Admin Acetaminophen (Tylenol) 650 mg Q6H PRN ORAL Mild Pain/Temp > 100.5 06/09/17 14:45 07/09/17 14:44 06/12/17 15:25 Dextrose/ Electrolytes 1,000 ml @ 100 mls/hr Q10H IV 06/09/17 17:00 07/09/17 16:59 06/13/17 08:20 Hydromorphone HCl (Dilaudid) 0.5 mg Q4H PRN IVP Mild Pain (Pain Scale 1-3) 06/09/17 14:45 06/16/17 14:44 Hydromorphone HCl (Dilaudid) 1 mg Q4H PRN IVP Severe Pain (Pain Scale 7-10) 06/09/17 14:45 06/16/17 14:44 06/12/17 07:57 Ondansetron HCl (Zofran) 4 mg Q4H PRN IVP Nausea & Vomiting 06/09/17 14:45 07/09/17 14:44 06/13/17 08:20 Tamsulosin HCl (Flomax) 0.4 mg BEDTIME ORAL 06/09/17 21:00 07/09/17 20:59 06/12/17 20:45 Allergies: Coded Allergies: ASPIRIN (Verified Allergy, Mild, 06/09/17) ROS Limited/Unobtainable: No Constitutional: Reports: no symptoms HEENT: Reports: no symptoms Cardiovascular: Reports: no symptoms Respiratory: Reports: no symptoms Gastrointestinal/Abdominal: Reports: abdominal pain Genitourinary: Reports: no symptoms Neurologic/Psychiatric: Reports: no symptoms Subjective 46 YO F admitted with right flank pain, now right ureteral calculi. Await cystoscopy/ureteroscopy. Cover for Int Kirk-Dr Dubon Objective Last Vital Signs Date Time Temp Pulse Resp B/P (MAP) Pulse Ox O2 Delivery O2 Flow Rate FiO2 06/13/17 15:40 98.1 72 18 129/69 94 Room Air Laboratory Tests Test 06/12/17 19:55 06/13/17 05:35 Urine HCG, Qualitative Negative White Blood Count 4.4 K/UL (4.8-10.8) L Red Blood Count 4.04 M/UL (4.20-5.40) L Hemoglobin 13.3 G/DL (12.0-16.0) Hematocrit 37.2 % (37.0-47.0) Mean Corpuscular Volume 92 FL (80-99) Mean Corpuscular Hemoglobin 33.0 PG (27.0-31.0) H Mean Corpuscular Hemoglobin Concent 35.8 G/DL (32.0-36.0) Red Cell Distribution Width 10.7 % (11.6-14.8) L Platelet Count 165 K/UL (150-450) Mean Platelet Volume 8.5 FL (6.5-10.1) Neutrophils (%) (Auto) 59.9 % (45.0-75.0) Lymphocytes (%) (Auto) 27.1 % (20.0-45.0) Monocytes (%) (Auto) 8.0 % (1.0-10.0) Eosinophils (%) (Auto) 4.3 % (0.0-3.0) H Basophils (%) (Auto) 0.6 % (0.0-2.0) Sodium Level 140 MMOL/L (136-145) Potassium Level 4.1 MMOL/L (3.5-5.1) Chloride Level 105 MMOL/L (98-107) Carbon Dioxide Level 27 MMOL/L (21-32) Anion Gap 8 mmol/L (5-15) Blood Urea Nitrogen 9 mg/dL (7-18) Creatinine 0.8 MG/DL (0.55-1.30) Estimat Glomerular Filtration Rate > 60 mL/min (>60) Glucose Level 96 MG/DL (74-106) Calcium Level 9.6 MG/DL (8.5-10.1) Microbiology Date/Time Source Procedure Growth Status 06/10/17 21:00 Urine,Clean Catch Urine Culture - Final Mixed Gram Positive Organism Complete Intake and Output 06/12/17 06/13/17 19:00 07:00 Intake Total 240 ml Balance 240 ml Intake Oral 240 ml # Voids 4 4 Objective General Appearance: WD/WN, no apparent distress, alert EENT: PERRL/EOMI, normal ENT inspection Neck: non-tender, normal alignment, supple, normal inspection Cardiovascular: normal peripheral pulses, normal rate, regular rhythm, no gallop/murmur, no JVD Respiratory/Chest: chest wall non-tender, lungs clear, normal breath sounds, no respiratory distress, no accessory muscle use Abdomen: normal bowel sounds, soft, no organomegaly, no mass, guarding, tender Extremities: normal range of motion, non-tender Neurologic: cpo II-XII grossly normal, no motor/sensory deficits Skin: normal pigmentation, warm/dry Assessment/Plan Problem List: (1) Right flank pain Assessment & Plan: Due to ureteral calculus. dilaudid prn (2) Ureteral calculus, right Assessment & Plan: Continue flomax and strain urine. Await cystoscopy/ ureteroscopy-see Urology note. (3) Low back pain (4) Asthma (5) Hypercholesterolemia (6) Fibromyalgia CALVIN WALLS Jun 13, 2017 16:56
[2017-06-13] MEDS ORDERED: Iothalamate Meglumine 60% 30ML INJ ONE (17:18)
[2017-06-13] MEDS ORDERED: cefOXitin 1gm Inj ONE (17:25)
[2017-06-13] MEDS ORDERED: LR 1000ml ONE (17:30)
[2017-06-13] MEDS ORDERED: Propofol 200mg/20ml IV ONE (17:30)
[2017-06-13] MEDS ORDERED: NS Irrig 2000ml IRRIG ONE (17:30)
[2017-06-13] MEDS ORDERED: fentaNYL 100 mcg/2 mL IV ONE (17:30)
[2017-06-13] MEDS ORDERED: NS Irrig 1000ml ONE (17:30)
[2017-06-13] MEDS ORDERED: Midazolam 2mg/2ml Inj ONE (17:30)
[2017-06-13] MEDS ORDERED: Sterile Water Irrig 1000ml IRRIG ONE (17:30)
--- NOTE | 2017-06-13 18:52 | Anethesia Preoperative Eval ---
Anesthesia Pre-op PMH/ROS General Date of Evaluation: Jun 13, 2017 Time of Evaluation: 17:40 Anesthesiologist: Rosangela ASA Score: ASA 2 Mallampati Score Class I : Soft palate, uvula, fauces, pillars visible Class II: Soft palate, uvula, fauces visible Class III: Soft palate, base of uvula visible Class IV: Only hard plate visible Mallampati Classification: Class II Surgeon: Kathy Diagnosis: Kidney stone Surgical Procedure: Cysto Anesthesia History: none Family History: no anesthesia problems Allergies: Coded Allergies: ASPIRIN (Verified Allergy, Mild, 06/09/17) Medications: see eMAR Past Medical History Cardiovascular: Denies: HTN, CAD, CA, valve dz, arrhythmia, other Pulmonary: Reports: asthma - mild, Denies: COPD, SIDNEY, other Gastrointestinal/Genitourinary: Reports: GERD, Denies: CRI, ESRD, other Neurologic/Psychiatric: Reports: depression/anxiety, other - Family Hx of brain aneurysm, Denies: dementia, CVA, TIA Endocrine: Denies: DM, hypothyroidism, steroids, other HEENT: Denies: cataract (L), cataract (R), glaucoma, [place] (L), [place] (R), other Hematology/Immune: Denies: anemia, DVT, bleeding disorder, other Musculoskeletal/Integumentary: Denies: OA, RA, DJD, DDD, edema, other PMH Narrative: as above PSxH Narrative: Cerebral angiogram Anesthesia Pre-op Phys. Exam Physician Exam Last Vital Signs Date Time Temp Pulse Resp B/P (MAP) Pulse Ox O2 Delivery O2 Flow Rate FiO2 06/13/17 15:40 98.1 72 18 129/69 94 Room Air Constitutional: NAD Neurologic: CN 2-12 intact Cardiovascular: RRR, no M/R/G Respiratory: CTA Gastrointestinal: S/NT/ND Airway Exam Mallampati Score: Class II MO: full Neck: flexible ROM: full Teeth: intact Dentures: no upper, no lower Anesthesia Pre-op A/P Labs Hematology Test 06/13/17 05:35 White Blood Count 4.4 K/UL (4.8-10.8) L Red Blood Count 4.04 M/UL (4.20-5.40) L Hemoglobin 13.3 G/DL (12.0-16.0) Hematocrit 37.2 % (37.0-47.0) Mean Corpuscular Volume 92 FL (80-99) Mean Corpuscular Hemoglobin 33.0 PG (27.0-31.0) H Mean Corpuscular Hemoglobin Concent 35.8 G/DL (32.0-36.0) Red Cell Distribution Width 10.7 % (11.6-14.8) L Platelet Count 165 K/UL (150-450) Mean Platelet Volume 8.5 FL (6.5-10.1) Neutrophils (%) (Auto) 59.9 % (45.0-75.0) Lymphocytes (%) (Auto) 27.1 % (20.0-45.0) Monocytes (%) (Auto) 8.0 % (1.0-10.0) Eosinophils (%) (Auto) 4.3 % (0.0-3.0) H Basophils (%) (Auto) 0.6 % (0.0-2.0) Chemistry Test 06/13/17 05:35 Sodium Level 140 MMOL/L (136-145) Potassium Level 4.1 MMOL/L (3.5-5.1) Chloride Level 105 MMOL/L (98-107) Carbon Dioxide Level 27 MMOL/L (21-32) Anion Gap 8 mmol/L (5-15) Blood Urea Nitrogen 9 mg/dL (7-18) Creatinine 0.8 MG/DL (0.55-1.30) Estimat Glomerular Filtration Rate > 60 mL/min (>60) Glucose Level 96 MG/DL (74-106) Calcium Level 9.6 MG/DL (8.5-10.1) Urine Test Test 06/12/17 19:55 Urine HCG, Qualitative Negative Risk Assessment & Plan Assessment: ASA 2 Plan: GA with LMA Status Change Before Surgery: No Pre-Antibiotics Drug: Cefoxitin 1 gr Given Within 1 Hr of Incision: Yes Time Given: 18:26 ILIA VALVERDE M.D. Jun 13, 2017 18:52
[2017-06-13] MEDS ORDERED: Hydromorphone 0.5mg/0.5ml inj IVP PRN (19:00)
[2017-06-13] MEDS ORDERED: DiphenhydrAMINE 50mg/ml Inj IVP PRN (19:00)
[2017-06-13] MEDS ORDERED: Meperidine 50mg/ml Inj(FOR RIGORS ONLY) IV PRN (19:00)
--- NOTE | 2017-06-13 19:12 | Brief Operative Note ---
Immediate Post Operative Note Operative Note Pre-op Diagnosis: right renal colic, hematuria, ureteral calc Procedure: cystoscopy, urethral calib, bilateral retrograde pyelograms, right ureteroscopy Post-op Diagnosis: same as pre-op Surgeon: dawson Anesthesiologist: risa Anesthesia: general Specimen: none Complications: none Condition: stable Fluids: NS Estimated Blood Loss: minimal Drains: none Implant(s) used?: No SHANIQUA LIM Jun 13, 2017 19:12
--- NOTE | 2017-06-13 19:19 | Immediate Post-Op Evaluation ---
Immediate Post-Op Evalulation Immediate Post-Op Evalulation Procedure: Cysto Retrograde pyelogram Date of Evaluation: Jun 13, 2017 Time of Evaluation: 19:18 IV Fluids: 400 Blood Products: none Estimated Blood Loss: miN Urinary Output: n/a Blood Pressure Systolic: 116 Blood Pressure Diastolic: 58 Pulse Rate: 84 Respiratory Rate: 20 O2 Sat by Pulse Oximetry: 99 Temperature (Fahrenheit): 97.8 Pain Score (1-10): 2 Nausea: No Vomiting: No Complications none Patient Status: awake, patent, none Hydration Status: adequate ILIA VALVERDE M.D. Jun 13, 2017 19:19
[2017-06-13] MEDS ORDERED: LR 1000ml 1,000 ML IVLG SCH (19:45)
[2017-06-13] MEDS: Phenazopyridine 200mg tab ORAL SCH (22:53)
[2017-06-13] MEDS: Tamsulosin 0.4mg cap ORAL SCH (22:53)
--- NOTE | 2017-06-13 23:15 | Operative Note - Dictated ---
DATE OF OPERATION: 06/13/2017 PREOPERATIVE DIAGNOSES: History of right renal colic secondary to obstructing right ureteral calculus and hematuria. POSTOPERATIVE DIAGNOSES: History of right renal colic secondary to obstructing right ureteral calculus and hematuria. PROCEDURE PERFORMED: Cystoscopy, urethral calibration, bilateral retrograde pyelogram, and right ureteroscopy. OPERATING SURGEON: Jeet Chavez M.D. ANESTHESIOLOGIST: Junaid Adames M.D. ANESTHESIA: General. INDICATIONS FOR PROCEDURE: This is a pleasant 46-year-old female. She was admitted to the hospital as a transfer because of right renal colic. She had an outside CT that showed a 4 mm stone of the right proximal ureter with mild hydronephrosis. She was also noted to have hematuria. The patient was admitted to the hospital and she initially requested to have a trial of passage of the stone and she continued to have pain. She was treated with Flomax and straining of her urine and she wanted to have definitive treatment of the stone. As such, she was scheduled for this procedure today. Just about an hour before the procedure, she was noted to pass what appeared to be a small stone in the strainer, which was sent for analysis. After this, I had a long discussion with the patient. I told her that probably the stone has passed. However, the patient wanted to make sure that there was no pathology. I did tell her that she had hematuria that was noted on the UA presumably because of the stone, however, there is always a chance of other pathology such as bladder tumors and that at some point, I would recommend a cystoscopy to make sure there are no bladder tumors. Again, she wanted assurance that there was no other pathology and I did give her the choice to cancel the procedure and possibly do a cystoscopy at a later time as an outpatient in the office. However, she wanted to do it here with anesthesia and decision was made to just do a diagnostic cystoscopy and make sure that the stone did pass and there was no other fragment. The nature of the procedure including possible risks and complications of bleeding, infection, anesthesia, damage to urethra, bladder, and ureter were discussed. No guarantees given or implied. FINDINGS: The patient had urethral stenosis. She had [id number] trigonitis. I did not see any bladder tumors. Bilateral retrograde pyelograms were normal. I did not see any residual stones. PROCEDURE IN DETAIL: Informed consent was obtained from the patient. The patient was then brought to the operating room and then placed in supine position. Successful general anesthesia was induced. The patient was then placed in a modified dorsal lithotomy position and genital area was then prepped and draped in usual sterile fashion. Preoperative IV antibiotics were administered. Time-out was performed. At this point, the patient's urethra appeared to be stenotic and it was gently dilated. Cystoscopy was then performed and I inspected the bladder very carefully with both 30 and 70-degree lenses. The patient had [id number] trigonitis. She had what appeared to be edema of the right ureteral orifice. I did not see any bladder tumors. At this point, the right ureteral orifice was cannulated with open-ended catheter. Retrograde pyelogram was done. There was very mild fullness. No filling defects. No obvious stones, and there was some mild delay in drainage on the right side. On the left side, the retrograde pyelogram was also normal. I again wanted to make sure that there were no residual stones in the ureter and at this point, the cystoscope was removed. The rigid ureteroscope was then inserted. I was able to get into the ureteral orifice without difficulty as it appeared to be slightly dilated and then, I was able to inspect mid distal ureter completely, at which time there was no stone and I again believe that she had completely passed the stone. The ureteroscope was removed. There was minimal if any manipulation. I do not feel she needs a stent. At this point, the bladder was emptied and the patient was awakened and was taken to recovery room in stable condition. Blood loss was none. No complications. Jeet Chavez M.D. DR: Chika JOB#: [id number] CC: Alexsander Dubon M.D.; Fax#: [phone] CALVIN WALLS M.D. ; FAX#: [phone]
[2017-06-14] VITALS: BP 105/65
[2017-06-14 04:00] VITALS: BP 102/59
[2017-06-14] MEDS: D5 1/2NS w/KCl 20mEq 1,000 ML IV SCH ×3 (06:54→16:48)
[2017-06-14 07:24] LABS: BASOPHILS % (AUTO) 0.9 % (0.0-2.0); EOSINOPHILS % (AUTO) 3.3 % (0.0-3.0); HEMATOCRIT 35.3 % (37.0-47.0); HEMOGLOBIN 12.8 G/DL (12.0-16.0); LYMPHOCYTES % (AUTO) 26.6 % (20.0-45.0); MEAN CORPUSCULAR VOLUME 91 FL (80-99); MONOCYTES % (AUTO) 7.7 % (1.0-10.0); NEUTROPHILS % (AUTO) 61.5 % (45.0-75.0); PLATELET COUNT 162 K/UL (150-450); RED BLOOD COUNT 3.89 M/UL (4.20-5.40); RED CELL DISTRIBUTION WIDTH 10.6 % (11.6-14.8); WHITE BLOOD COUNT 5.1 K/UL (4.8-10.8)
[2017-06-14 07:38] LABS: POTASSIUM 4.4 MMOL/L (3.5-5.1); SODIUM 139 MMOL/L (136-145)
[2017-06-14 07:39] LABS: ALANINE AMINOTRANSFERASE 15 U/L (12-78); ALBUMIN 3.2 G/DL (3.4-5.0); ALKALINE PHOSPHATASE 52 U/L (46-116); ANION GAP 7 mmol/L (5-15); ASPARTATE AMINO TRANSFERASE 13 U/L (15-37); BILIRUBIN,TOTAL 0.3 MG/DL (0.2-1.0); BLOOD UREA NITROGEN 9 mg/dL (7-18); CALCIUM 9.5 MG/DL (8.5-10.1); CARBON DIOXIDE 28 MMOL/L (21-32); CHLORIDE 104 MMOL/L (98-107); CREATININE 0.8 MG/DL (0.55-1.30); PHOSPHORUS 4.2 MG/DL (2.5-4.9)
--- NOTE | 2017-06-14 07:59 | Urology Progress Note ---
Assessment/Plan Assessment/Plan 1. Renal colic, secondary to a 4 mm right ureteral calculus, resolved. 2. Hydronephrosis, secondary to above. 3. Hematuria, secondary to above. 4. POD # 1, cysto doing ok prophylactic abx f/u on stone analysis outpt f/u Subjective Allergies: Coded Allergies: ASPIRIN (Verified Allergy, Mild, 06/09/17) Subjective feels fair, mild "cramping" last night, now better Objective Last 24 Hour Vital Signs Date Time Temp Pulse Resp B/P (MAP) Pulse Ox O2 Delivery O2 Flow Rate FiO2 06/14/17 04:27 97.3 06/14/17 04:00 Nasal Cannula 2.0 06/14/17 04:00 97.7 64 16 102/59 97 06/14/17 00:00 Nasal Cannula 2.0 06/14/17 00:00 97.3 77 20 105/65 98 06/13/17 21:10 97.4 65 18 106/71 100 06/13/17 21:00 Nasal Cannula 2.0 06/13/17 20:40 97.7 56 18 109/59 100 06/13/17 20:25 97.0 63 18 114/71 100 06/13/17 20:15 98.7 56 20 113/69 100 Nasal Cannula 3.0 06/13/17 20:13 98.3 06/13/17 20:00 63 13 111/70 100 Nasal Cannula 3.0 06/13/17 19:45 64 16 118/73 100 Nasal Cannula 3.0 06/13/17 19:43 98.3 06/13/17 19:35 61 17 117/67 100 Nasal Cannula 3.0 06/13/17 19:25 63 18 120/65 100 Nasal Cannula 3.0 06/13/17 19:20 71 12 114/78 100 Nasal Cannula 3.0 06/13/17 19:19 208.0 84 20 99 06/13/17 19:16 97.8 89 15 129/69 100 Simple Mask 6.0 06/13/17 15:40 98.1 72 18 129/69 94 Room Air 06/13/17 11:58 97.9 73 18 105/68 Room Air 06/13/17 08:04 96.6 76 18 106/59 94 Room Air Intake and Output 06/13/17 06/14/17 19:00 07:00 Intake Total 1140 ml 1510 ml Output Total 665 ml Balance 1140 ml 845 ml Intake Oral 240 ml IV Total 900 ml 1510 ml Output Urine Total 650 ml Estimated Blood Loss 15 ml # Voids 3 Microbiology Date/Time Source Procedure Growth Status 06/10/17 21:00 Urine,Clean Catch Urine Culture - Final Mixed Gram Positive Organism Complete Current Medications Medications (Trade) Dose Ordered Sig/Belen Route PRN Reason Start Time Stop Time Status Last Admin Dose Admin Acetaminophen (Tylenol) 650 mg Q6H PRN ORAL Mild Pain/Temp > 100.5 06/09/17 14:45 07/09/17 14:44 06/14/17 04:27 Ciprofloxacin (Cipro 500mg tab) 500 mg BID ORAL 06/14/17 10:00 06/21/17 09:59 Dextrose/ Electrolytes 1,000 ml @ 100 mls/hr Q10H IV 06/09/17 17:00 07/09/17 16:59 06/13/17 20:50 Hydromorphone HCl (Dilaudid) 0.5 mg Q4H PRN IVP Mild Pain (Pain Scale 1-3) 06/09/17 14:45 06/16/17 14:44 Hydromorphone HCl (Dilaudid) 1 mg Q4H PRN IVP Severe Pain (Pain Scale 7-10) 06/09/17 14:45 06/16/17 14:44 06/12/17 07:57 Ondansetron HCl (Zofran) 4 mg Q4H PRN IVP Nausea & Vomiting 06/09/17 14:45 07/09/17 14:44 06/13/17 08:20 Phenazopyridine HCl (Pyridium) 200 mg THREE TIMES A DAY ORAL 06/13/17 22:00 07/13/17 21:59 06/13/17 22:53 Tamsulosin HCl (Flomax) 0.4 mg BEDTIME ORAL 06/09/17 21:00 07/09/17 20:59 06/13/17 22:53 Laboratory Tests 06/13/17 17:15: Stone Source [Pending], Stone Size [Pending], Stone Weight [Pending], Stone Color [Pending], Stone Composition [Pending], Stone Nidus [Pending] 06/14/17 05:50: White Blood Count 5.1, Red Blood Count 3.89L, Hemoglobin 12.8, Hematocrit 35.3L , Mean Corpuscular Volume 91, Mean Corpuscular Hemoglobin 32.9H, Mean Corpuscular Hemoglobin Concent 36.2H, Red Cell Distribution Width 10.6L, Platelet Count 162, Mean Platelet Volume 8.8, Neutrophils (%) (Auto) 61.5, Lymphocytes (%) (Auto) 26.6, Monocytes (%) (Auto) 7.7, Eosinophils (%) (Auto) 3.3H, Basophils (%) (Auto) 0.9, Sodium Level 139, Potassium Level 4.4, Chloride Level 104, Carbon Dioxide Level 28, Anion Gap 7, Blood Urea Nitrogen 9, Creatinine 0.8, Estimat Glomerular Filtration Rate > 60, Glucose Level 114H, Calcium Level 9.5, Phosphorus Level 4.2, Magnesium Level 2.1, Total Bilirubin 0.3, Aspartate Amino Transf (AST/SGOT) 13L, Alanine Aminotransferase (ALT/SGPT) 15, Alkaline Phosphatase 52, Total Protein 6.3L, Albumin 3.2L, Globulin 3.1, Albumin/Globulin Ratio 1.0 Height (Feet): 5 Height (Inches): 5.00 Weight (Pounds): 146 Objective abdomen soft, no CVAT KUB noted SHANIQUA LIM Jun 14, 2017 07:59
[2017-06-14 08:00] VITALS: BP 90/57
[2017-06-14] MEDS: Phenazopyridine 200mg tab ORAL SCH ×3 (08:47→17:50)
[2017-06-14] MEDS: Ciprofloxacin 500mg tab ORAL SCH ×2 (09:38→17:50)
[2017-06-14 12:00] VITALS: BP 106/56
--- NOTE | 2017-06-14 12:16 | Diagnostic Imaging Report ---
Indication: Renal stones. Pain. Images obtained during retrograde pyelography Comparison: None Findings: Fluoroscopic obtained images showing bilateral ureteral contrast injection demonstrating the collecting systems bilaterally. No dilatation or obvious filling defects are identified on the images obtained. IMPRESSION: Intraprocedural imaging. Unremarkable bilateral retrograde pyelograms
--- NOTE | 2017-06-14 12:35 | Internal Med Progress Note ---
Subjective Date of Service: Jun 14, 2017 Physician Name TitiCalvin Attending Physician Alexsander Dubon MD Current Medications Medications (Trade) Dose Ordered Sig/Belen Route PRN Reason Start Time Stop Time Status Last Admin Dose Admin Acetaminophen (Tylenol) 650 mg Q6H PRN ORAL Mild Pain/Temp > 100.5 06/09/17 14:45 07/09/17 14:44 06/14/17 04:27 Ciprofloxacin (Cipro 500mg tab) 500 mg BID ORAL 06/14/17 10:00 06/21/17 09:59 06/14/17 09:38 Dextrose/ Electrolytes 1,000 ml @ 100 mls/hr Q10H IV 06/09/17 17:00 07/09/17 16:59 06/14/17 12:15 Hydromorphone HCl (Dilaudid) 0.5 mg Q4H PRN IVP Mild Pain (Pain Scale 1-3) 06/09/17 14:45 06/16/17 14:44 06/14/17 10:13 Hydromorphone HCl (Dilaudid) 1 mg Q4H PRN IVP Severe Pain (Pain Scale 7-10) 06/09/17 14:45 06/16/17 14:44 06/12/17 07:57 Ondansetron HCl (Zofran) 4 mg Q4H PRN IVP Nausea & Vomiting 06/09/17 14:45 07/09/17 14:44 06/13/17 08:20 Phenazopyridine HCl (Pyridium) 200 mg THREE TIMES A DAY ORAL 06/13/17 22:00 07/13/17 21:59 06/14/17 12:33 Tamsulosin HCl (Flomax) 0.4 mg BEDTIME ORAL 06/09/17 21:00 07/09/17 20:59 06/13/17 22:53 Allergies: Coded Allergies: ASPIRIN (Verified Allergy, Mild, 06/09/17) ROS Limited/Unobtainable: No Constitutional: Reports: no symptoms HEENT: Reports: no symptoms Cardiovascular: Reports: no symptoms Respiratory: Reports: no symptoms Gastrointestinal/Abdominal: Reports: no symptoms Genitourinary: Reports: no symptoms Neurologic/Psychiatric: Reports: no symptoms Subjective 46 YO F admitted with right flank pain, now right ureteral calculi. S/P cystoscopy/ureteroscopy on 06/13/17. Cover for Int Jamie Dubon Objective Last Vital Signs Date Time Temp Pulse Resp B/P (MAP) Pulse Ox O2 Delivery O2 Flow Rate FiO2 06/14/17 12:00 98.5 67 20 106/56 97 06/14/17 04:00 Nasal Cannula 2.0 Laboratory Tests Test 06/13/17 17:15 06/14/17 05:50 Stone Source Pending Stone Size Pending Stone Weight Pending Stone Color Pending Stone Composition Pending Stone Nidus Pending White Blood Count 5.1 K/UL (4.8-10.8) Red Blood Count 3.89 M/UL (4.20-5.40) L Hemoglobin 12.8 G/DL (12.0-16.0) Hematocrit 35.3 % (37.0-47.0) L Mean Corpuscular Volume 91 FL (80-99) Mean Corpuscular Hemoglobin 32.9 PG (27.0-31.0) H Mean Corpuscular Hemoglobin Concent 36.2 G/DL (32.0-36.0) H Red Cell Distribution Width 10.6 % (11.6-14.8) L Platelet Count 162 K/UL (150-450) Mean Platelet Volume 8.8 FL (6.5-10.1) Neutrophils (%) (Auto) 61.5 % (45.0-75.0) Lymphocytes (%) (Auto) 26.6 % (20.0-45.0) Monocytes (%) (Auto) 7.7 % (1.0-10.0) Eosinophils (%) (Auto) 3.3 % (0.0-3.0) H Basophils (%) (Auto) 0.9 % (0.0-2.0) Sodium Level 139 MMOL/L (136-145) Potassium Level 4.4 MMOL/L (3.5-5.1) Chloride Level 104 MMOL/L (98-107) Carbon Dioxide Level 28 MMOL/L (21-32) Anion Gap 7 mmol/L (5-15) Blood Urea Nitrogen 9 mg/dL (7-18) Creatinine 0.8 MG/DL (0.55-1.30) Estimat Glomerular Filtration Rate > 60 mL/min (>60) Glucose Level 114 MG/DL (74-106) H Calcium Level 9.5 MG/DL (8.5-10.1) Phosphorus Level 4.2 MG/DL (2.5-4.9) Magnesium Level 2.1 MG/DL (1.5-2.4) Total Bilirubin 0.3 MG/DL (0.2-1.0) Aspartate Amino Transf (AST/SGOT) 13 U/L (15-37) L Alanine Aminotransferase (ALT/SGPT) 15 U/L (12-78) Alkaline Phosphatase 52 U/L (46-116) Total Protein 6.3 G/DL (6.4-8.2) L Albumin 3.2 G/DL (3.4-5.0) L Globulin 3.1 g/dL Albumin/Globulin Ratio 1.0 (1.0-2.7) Intake and Output 06/13/17 06/14/17 19:00 07:00 Intake Total 1140 ml 1510 ml Output Total 665 ml Balance 1140 ml 845 ml Intake Oral 240 ml IV Total 900 ml 1510 ml Output Urine Total 650 ml Estimated Blood Loss 15 ml # Voids 3 Objective General Appearance: WD/WN, no apparent distress, alert EENT: PERRL/EOMI, normal ENT inspection Neck: non-tender, normal alignment, supple, normal inspection Cardiovascular: normal peripheral pulses, normal rate, regular rhythm, no gallop/murmur, no JVD Respiratory/Chest: chest wall non-tender, lungs clear, normal breath sounds, no respiratory distress, no accessory muscle use Abdomen: normal bowel sounds, soft, no organomegaly, no mass, guarding, tender Extremities: normal range of motion, non-tender 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 dilaudid prn (2) Ureteral calculus, right Assessment & Plan: Continue flomax and strain urine. S/P cystoscopy/ ureteroscopyon 06/13/17. -See Urology note. (3) Low back pain (4) Asthma (5) Hypercholesterolemia (6) Fibromyalgia Status: stable TITICALVIN Jun 14, 2017 12:35
--- NOTE | 2017-06-14 13:04 | 48 Hour Post Anesthesia Eval ---
Post Anesthesia Evaluation Procedure: Cysto Retrograde pyelogram Date of Evaluation: Jun 14, 2017 Time of Evaluation: 06:50 Blood Pressure Systolic: 102 0: 59 Pulse Rate: 64 Respiratory Rate: 16 Temperature (Fahrenheit): 97.3 O2 Sat by Pulse Oximetry: 97 Airway: patent Nausea: No Vomiting: No Pain Intensity: 2 Hydration Status: adequate Cardiopulmonary Status: at baseline Mental Status/LOC: patient returned to baseline Post-Anesthesia Complications: 0 Follow-up care needed: N/A - further care as per primary team HOANG WHITAKER M.D. Jun 14, 2017 13:04
[2017-06-14 16:00] VITALS: BP 96/57
[2017-06-14] MEDS: Norco 5mg/325mg tab ORAL PRN (16:48)
[2017-06-14 19:57] VITALS: BP 103/53
[2017-06-14] MEDS: Tamsulosin 0.4mg cap ORAL SCH (20:30)
[2017-06-14] MEDS: HYDROmorphone 1mg/ml Carpuject IVP PRN (20:51)
[2017-06-14] MEDS ORDERED: Ciprofloxacin 500mg tab ORAL SCH (22:00)
[2017-06-15 00:51] VITALS: BP 93/53
[2017-06-15 03:42] VITALS: BP 87/43
[2017-06-15] MEDS: D5 1/2NS w/KCl 20mEq 1,000 ML IV SCH ×2 (04:59→14:45)
[2017-06-15] MEDS: Norco 5mg/325mg tab ORAL PRN ×2 (05:27→09:38)
[2017-06-15 08:00] VITALS: BP 96/54
--- NOTE | 2017-06-15 08:24 | Pulmonology Progress Note ---
Assessment/Plan Assessment/Plan ASSESSMENT Renal colic 2 to ureteral calculus R ureteral calculus Hydronephrosis Hematuria s/p cystoscopy asthma PLAN OF CARE MS floor IVF pain management urology follows s/p cystoscopy ; no tumors found , bilateral retrograde pyelo unremarkable fup with stone analysis empiric abx outpt fup with urologist O2 HHN prn intermittent spotting likely will resolve in 12-24 hrs after cystoscopy, CBC in am urologist to address all questions and concerns prior to discharge, outpt fup with urologist case discussed and evaluated by supervising physician Subjective Allergies: Coded Allergies: ASPIRIN (Verified Allergy, Mild, 06/09/17) Subjective s/p cystoscopy, reports blood in urine with voiding and left flank pain Objective Last 24 Hour Vital Signs Date Time Temp Pulse Resp B/P (MAP) Pulse Ox O2 Delivery O2 Flow Rate FiO2 06/15/17 03:42 97.5 67 20 98 Room Air 06/15/17 00:51 97.5 72 20 93/53 97 Room Air 06/14/17 19:57 97.7 70 20 103/53 67 Room Air 06/14/17 16:00 98.6 73 22 96/57 100 06/14/17 13:04 207.1 64 16 97 06/14/17 12:00 98.5 67 20 106/56 97 Intake and Output 06/14/17 06/15/17 19:00 07:00 Intake Total 540 ml 1320 ml Output Total 500 ml Balance 540 ml 820 ml Intake Oral 240 ml 120 ml IV Total 300 ml 1200 ml Output Urine Total 500 ml # Voids 2 General Appearance: no acute distress HEENT: normocephalic, atraumatic, anicteric, mucous membranes moist, PERRL Respiratory/Chest: lungs clear, no respiratory distress, no accessory muscle use Cardiovascular: normal peripheral pulses, normal rate, regular rhythm, no JVD Abdomen: normal bowel sounds, soft, non tender Extremities: no cyanosis, no edema, pedal pulses normal 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, no motor/sensory deficits, alert, oriented x 3, responsive, normal mood/affect Musculoskeletal: normal muscle bulk Current Medications Medications (Trade) Dose Ordered Sig/Belen Route PRN Reason Start Time Stop Time Status Last Admin Dose Admin Acetaminophen (Tylenol) 650 mg Q6H PRN ORAL Mild Pain/Temp > 100.5 06/09/17 14:45 07/09/17 14:44 06/14/17 04:27 Acetaminophen/ Hydrocodone Bitart ([place] 5/325) 1 tab Q4H PRN ORAL Moderate Pain (Pain Scale 4-6) 06/14/17 13:00 06/21/17 12:59 06/15/17 05:27 Ciprofloxacin (Cipro 500mg tab) 500 mg BID ORAL 06/14/17 10:00 06/21/17 09:59 06/14/17 17:50 Dextrose/ Electrolytes 1,000 ml @ 100 mls/hr Q10H IV 06/09/17 17:00 07/09/17 16:59 06/15/17 04:59 Hydromorphone HCl (Dilaudid) 1 mg Q4H PRN IVP Severe Pain (Pain Scale 7-10) 06/09/17 14:45 06/16/17 14:44 06/14/17 20:51 Ondansetron HCl (Zofran) 4 mg Q4H PRN IVP Nausea & Vomiting 06/09/17 14:45 07/09/17 14:44 06/14/17 20:30 Phenazopyridine HCl (Pyridium) 200 mg THREE TIMES A DAY ORAL 06/13/17 22:00 07/13/17 21:59 06/14/17 17:50 Tamsulosin HCl (Flomax) 0.4 mg BEDTIME ORAL 06/09/17 21:00 07/09/17 20:59 06/14/17 20:30 [facility]Qi NP Jun 15, 2017 08:24
[2017-06-15] MEDS: Phenazopyridine 200mg tab ORAL SCH ×3 (08:39→18:58)
[2017-06-15] MEDS: Ciprofloxacin 500mg tab ORAL SCH ×2 (08:39→18:58)
--- NOTE | 2017-06-15 10:02 | Urology Progress Note ---
Assessment/Plan Assessment/Plan 1. Renal colic, secondary to a 4 mm right ureteral calculus, resolved. 2. Hydronephrosis, secondary to above. 3. Hematuria, secondary to above. 4. POD # 2, cysto doing ok prob musculoskeletal pain prophylactic abx f/u on stone analysis outpt f/u Subjective Allergies: Coded Allergies: ASPIRIN (Verified Allergy, Mild, 06/09/17) Subjective feels fair, some vague left-sided back pain last night Objective Last 24 Hour Vital Signs Date Time Temp Pulse Resp B/P (MAP) Pulse Ox O2 Delivery O2 Flow Rate FiO2 06/15/17 08:00 97.7 70 20 96/54 94 06/15/17 03:42 97.5 67 20 98 Room Air 06/15/17 00:51 97.5 72 20 93/53 97 Room Air 06/14/17 19:57 97.7 70 20 103/53 67 Room Air 06/14/17 16:00 98.6 73 22 96/57 100 06/14/17 13:04 207.1 64 16 97 06/14/17 12:00 98.5 67 20 106/56 97 Intake and Output 06/14/17 06/15/17 19:00 07:00 Intake Total 540 ml 1320 ml Output Total 500 ml Balance 540 ml 820 ml Intake Oral 240 ml 120 ml IV Total 300 ml 1200 ml Output Urine Total 500 ml # Voids 2 Microbiology Date/Time Source Procedure Growth Status 06/10/17 21:00 Urine,Clean Catch Urine Culture - Final Mixed Gram Positive Organism Complete Current Medications Medications (Trade) Dose Ordered Sig/Belen Route PRN Reason Start Time Stop Time Status Last Admin Dose Admin Acetaminophen (Tylenol) 650 mg Q6H PRN ORAL Mild Pain/Temp > 100.5 06/09/17 14:45 07/09/17 14:44 06/14/17 04:27 Acetaminophen/ Hydrocodone Bitart ([place] 5/325) 1 tab Q4H PRN ORAL Moderate Pain (Pain Scale 4-6) 06/14/17 13:00 06/21/17 12:59 06/15/17 09:38 Ciprofloxacin (Cipro 500mg tab) 500 mg BID ORAL 06/14/17 10:00 06/21/17 09:59 06/15/17 08:39 Dextrose/ Electrolytes 1,000 ml @ 100 mls/hr Q10H IV 06/09/17 17:00 07/09/17 16:59 06/15/17 04:59 Hydromorphone HCl (Dilaudid) 1 mg Q4H PRN IVP Severe Pain (Pain Scale 7-10) 06/09/17 14:45 06/16/17 14:44 06/14/17 20:51 Ondansetron HCl (Zofran) 4 mg Q4H PRN IVP Nausea & Vomiting 06/09/17 14:45 07/09/17 14:44 06/14/17 20:30 Phenazopyridine HCl (Pyridium) 200 mg THREE TIMES A DAY ORAL 06/13/17 22:00 07/13/17 21:59 06/15/17 08:39 Tamsulosin HCl (Flomax) 0.4 mg BEDTIME ORAL 06/09/17 21:00 07/09/17 20:59 06/14/17 20:30 Height (Feet): 5 Height (Inches): 5.00 Weight (Pounds): 146 Objective abdomen soft, no CVAT, point tenderness lower back KUB noted SHANIQUA LIM Jun 15, 2017 10:02
[2017-06-15 12:00] VITALS: BP 96/57
[2017-06-15 16:01] VITALS: BP 98/62
--- NOTE | 2017-06-15 18:30 | Internal Med Progress Note ---
Subjective Date of Service: Jun 15, 2017 Physician Name Calvin Walls Attending Physician Alexsander Dubon MD Current Medications Medications (Trade) Dose Ordered Sig/Belen Route PRN Reason Start Time Stop Time Status Last Admin Dose Admin Acetaminophen (Tylenol) 650 mg Q6H PRN ORAL Mild Pain/Temp > 100.5 06/09/17 14:45 07/09/17 14:44 06/14/17 04:27 Acetaminophen/ Hydrocodone Bitart ([place] 5/325) 1 tab Q4H PRN ORAL Moderate Pain (Pain Scale 4-6) 06/14/17 13:00 06/21/17 12:59 06/15/17 09:38 Ciprofloxacin (Cipro 500mg tab) 500 mg BID ORAL 06/14/17 10:00 06/21/17 09:59 06/15/17 08:39 Dextrose/ Electrolytes 1,000 ml @ 100 mls/hr Q10H IV 06/09/17 17:00 07/09/17 16:59 06/15/17 14:45 Hydromorphone HCl (Dilaudid) 1 mg Q4H PRN IVP Severe Pain (Pain Scale 7-10) 06/09/17 14:45 06/16/17 14:44 06/14/17 20:51 Ondansetron HCl (Zofran) 4 mg Q4H PRN IVP Nausea & Vomiting 06/09/17 14:45 07/09/17 14:44 06/14/17 20:30 Phenazopyridine HCl (Pyridium) 200 mg THREE TIMES A DAY ORAL 06/13/17 22:00 07/13/17 21:59 06/15/17 14:41 Tamsulosin HCl (Flomax) 0.4 mg BEDTIME ORAL 06/09/17 21:00 07/09/17 20:59 06/14/17 20:30 Allergies: Coded Allergies: ASPIRIN (Verified Allergy, Mild, 06/09/17) ROS Limited/Unobtainable: No Constitutional: Reports: no symptoms HEENT: Reports: no symptoms Cardiovascular: Reports: no symptoms Respiratory: Reports: no symptoms Gastrointestinal/Abdominal: Reports: no symptoms Genitourinary: Reports: no symptoms Neurologic/Psychiatric: Reports: no symptoms Subjective 46 YO F admitted with right flank pain, now right ureteral calculi. Spontaneous passing of stone on 06/13/17. S/P cystoscopy/ureteroscopy on . Cover for Int Kirk-Dr Dubon Objective Last Vital Signs Date Time Temp Pulse Resp B/P (MAP) Pulse Ox O2 Delivery O2 Flow Rate FiO2 06/15/17 16:01 98.2 64 20 98/62 96 06/15/17 16:01 Room Air 06/14/17 04:00 2.0 Intake and Output 06/14/17 06/15/17 19:00 07:00 Intake Total 540 ml 1320 ml Output Total 500 ml Balance 540 ml 820 ml Intake Oral 240 ml 120 ml IV Total 300 ml 1200 ml Output Urine Total 500 ml # Voids 2 Objective General Appearance: WD/WN, no apparent distress, alert EENT: PERRL/EOMI, normal ENT inspection Neck: non-tender, normal alignment, supple, normal inspection Cardiovascular: normal peripheral pulses, normal rate, regular rhythm, no gallop/murmur, no JVD Respiratory/Chest: chest wall non-tender, lungs clear, normal breath sounds, no respiratory distress, no accessory muscle use Abdomen: normal bowel sounds, soft, no organomegaly, no mass, guarding, tender Extremities: normal range of motion, non-tender 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 Continues to require IV dilaudid prn (2) Ureteral calculus, right Assessment & Plan: Continue flomax and strain urine. S/P cystoscopy/ ureteroscopyon 06/13/17. -See Urology note. (3) Low back pain (4) Asthma (5) Hypercholesterolemia (6) Fibromyalgia Assessment/Plan Discharge planning CALVIN WALLS Jun 15, 2017 18:30
[2017-06-15] MEDS ORDERED: NORCO 5-325 TA1 EACH ORAL (20:01)
[2017-06-15 20:39] VITALS: BP 100/66
--- NOTE | 2017-06-22 12:15 | Discharge Summary ---
Discharge Summary Hospital Course Date of Admission Jun 09, 2017 at 13:58 Date of Discharge Jun 15, 2017 at 20:30 Admitting Diagnosis HPI Mimi Medel is a 46 year old female who was admitted on Jun 09, 2017 at 13:58 for Intractable Abdominal Pain, Kidney Stone Hospital Course [id number] Discharge Discharge Disposition Patient was discharged to Home (01) Discharge Diagnoses: Beverly Pearl NP Jun 22, 2017 12:15
--- NOTE | 2017-06-23 02:45 | Discharge Summary 2 SIG ---
DATE OF ADMISSION: 06/09/2017 DATE OF DISCHARGE: 06/15/2017 CONSULTANTS: 1. Jeet Chavez M.D. 2. Paul Tong M.D. BRIEF HOSPITAL COURSE: The patient is a 46-year-old delightful female with past medical history significant for fibromyalgia, history of dyslipidemia, asthma, and osteoarthritis of the spine with low back pain, presented initially to [facility] complaining of lower back pain as well as right flank pain. The pain has become progressively worsening. Initially, started two nights prior to admission. Pain has worsened to the point that she was not able to rest and decided to present to the hospital. On evaluation at [facility], she was confirmed to have a kidney stone and the patient was subsequently transferred to [facility] for further evaluation and Urology consultation. CT and KUB confirmed that the patient had a 4 mm right proximal ureteral obstructing calculi with mild right hydronephrosis. The patient was placed on IV hydration and was given a regular diet. She was started on Flomax. Urine was strained. Hopefully, the patient would pass the stone normally. She was given Dilaudid for pain management and was followed by Dr. Chavez. She continued to have pain and was not able to pass urine. She then underwent cystoscopy with urethral calibration, bilateral retrograde pyelogram, and right ureteroscopy by Dr. Chavez on 06/13/2017. Postoperatively, she was given prophylactic antibiotic. Renal colic improved. Urine culture showed growth of mixed gram-positive organisms. She was continued on p.o. antibiotic and was eventually discharged home. FINAL DIAGNOSES: 1. Renal colic secondary to ureteral calculus. 2. Right ureteral calculus. 3. Hydronephrosis. 4. Hematuria. 5. Status post cystoscopy. 6. Asthma. 7. Fibromyalgia. 8. Hypercholesterolemia. DISPOSITION: The patient was discharged home. DISCHARGE MEDICATIONS: Continue with p.r.n. [place]. DISCHARGE INSTRUCTIONS: Follow up with Dr. Dubon in a week. Alexsander Dubon M.D. I have been assigned to dictate discharge summary on this account and I was not involved in the patient's management. Beverly Pearl N.P. DR: PAUL JOB#: [id number] CC: TEDDY
== END 2017-06-15 20:30 | disposition home or self-care (01) | DRG 694 ==
LOC: 4W 13:58
PROC: BT14ZZZ Fluoroscopy of Kidneys, Ureters and Bladder (ICD-10-PCS; principal; 2017-06-13 18:00)
PROC: 0TJ98ZZ Inspection of Ureter, Via Natural or Artificial Opening Endoscopic (ICD-10-PCS; principal; 2017-06-13 18:00)
PROC: 0T7D8ZZ Dilation of Urethra, Via Natural or Artificial Opening Endoscopic (ICD-10-PCS; principal; 2017-06-13 18:00)
DX: N13.2 Hydronephrosis with renal and ureteral calculous obstruction (principal); E78.5 Hyperlipidemia, unspecified; N30.31 Trigonitis with hematuria; N35.9 Urethral stricture, unspecified; M79.7 Fibromyalgia; J45.909 Unspecified asthma, uncomplicated; M47.896 Other spondylosis, lumbar region; E78.00 Pure hypercholesterolemia, unspecified
CPT/HCPCS: 36415; 74018; 74420; 76000; 76001; 80048; 80053; 81001; 81025; 82360; 83735; 84100; 85025; 85610; 85651; 85730; 87086; 94003; 94150; J2250; J2405